=== PATIENT | male | born 1995 | race Caucasian/White ===

== ENCOUNTER 2017-05-28 16:05 | Inpatient (IN) | payer OTHER ==
[~2017-05-28] VITALS: Ht 167.6 cm; Wt 46.8 kg
[2017-05-28] MEDS ORDERED: ONDANSETRON INJ 2 MG/ML 2 ML VIAL IV STA (16:24)
[2017-05-28] MEDS ORDERED: KETOROLAC TROMETHAMINE 30 MG/ML VIAL IV STA (16:24)
[2017-05-28] MEDS ORDERED: SODIUM CHLORIDE 0.9% 1000ML 1,000 ML IV STA ×2 (16:24→16:51)
[2017-05-28 16:41] LABS: BASO % 0.1 %; BASO ABS # 0.03 K/uL (0-0.2); COMPLETE YES; HEMATOCRIT 44.6 % (42-52); IG% 0.4 %; LYMPH % 4.4 %; LYMPH ABS # 0.98 K/uL (1.2-3.4); MEAN CELL VOLUME 94.7 fL (80-100); MEAN CORPUSCULAR HEMOGLOBIN 34.6 pg (25-34); MEAN CORPUSCULAR HGB CONC 36.5 g/dl (32-36); MEAN PLATELET VOLUME 11.5 fL (7.4-10.4); MONO % 5.6 %; NEUT % 89.5 %; PLATELET COUNT 220 K/uL (130-400); RED BLOOD COUNT 4.71 M/uL (4.7-6.1); WHITE BLOOD COUNT 22.11 K/uL (4.8-10.8)
[2017-05-28] MEDS ORDERED: NovoLIN-R INSULIN PER UNIT CHARGE IV STA (16:51)
[2017-05-28] MEDS ORDERED: INSDGIPEN SC (16:56)
[2017-05-28] MEDS ORDERED: NVLGI/PEN SQ (16:56)
[2017-05-28] MEDS ORDERED: ERGO500011 PO (16:56)
[2017-05-28] MEDS ORDERED: EUTHYROX PO (16:56)
[2017-05-28 16:57] LABS: URINE APPEARANCE CLEAR (CLEAR); URINE BILIRUBIN NEG (NEG); URINE COLOR YELLOW; URINE NITRITE NEG (NEG); URINE SPECIFIC GRAVITY 1.039 (1.000-1.030); UROBILINOGEN NEG (NEG)
[2017-05-28 16:57] LABS: BUN/CREATININE RATIO 18.4 (10-20); CALCIUM 9.4 mg/dl (8.5-10.1); CREATININE 1.26 mg/dl (0.60-1.40); POTASSIUM 3.8 mmol/L (3.5-5.1)
[2017-05-28 16:58] LABS: ISTAT CREATININE 0.8 mg/dl; ISTAT HEMOGLOBIN 15.3 g/dl (14.0-18.0); ISTAT IONIZED CALCIUM 1.09 mmol/l
[2017-05-28 17:00] LABS: MANUAL MICROSCOPIC REQUIRED? NO; REVIEW REQ? NO
[2017-05-28] MEDS ORDERED: INSULIN IV INFUSION PROTOCOL STA ×2 (17:01→18:07)
[2017-05-28 17:11] LABS: BETA-HYDROXYBUTYRATE 23.44 mg/dL (0.2-2.81)
[2017-05-28] MEDS ORDERED: MODERATE STRESS LEVEL ONE ×2 (17:15→18:15)
[2017-05-28] MEDS ORDERED: DKA GOAL RANGE 150-250 mg/dl 1 EA ONE ×2 (17:15→18:15)
[2017-05-28] MEDS ORDERED: NovoLIN R BOLUS FROM BAG IV ONE (17:15)
[2017-05-28] MEDS ORDERED: INSULIN REGULAR 250 UNITS in SODIUM CHLORIDE 0.9% 250ML 250 ML IV SCH (17:15)
--- NOTE | 2017-05-28 17:15 | EMERGENCY ROOM VISIT NOTE ---
History Report prepared by Mikal: Bart Recinos Under the Supervision of: Dr. Eliot Rossi M.D. First contact with patient: 16:19 Chief Complaint: VOMITING Stated Complaint: VOMITING SEVERAL TIMES-HAS TYPE 1 DIABETES History of Present Illness The patient is a 21 year old male who presents to the Emergency Room with complaints of persistent vomiting starting this morning around 0600. He states that he woke up this morning feeling dizzy, nauseous, and he vomited. He has been drinking small amounts of water, and he is unable to keep this down. He notes that he has vomited 8 times today. The patient denies abdominal pain or diarrhea. He is a type 1 diabetic, and he takes insulin shots. He reports that his blood sugar was 375 earlier this morning, though it has come down a little bit after insulin. The patient denies smoking marijuana and cigarettes. Source of History: patient Onset: 0600 Position: other (global) Quality: other (vomiting) Timing: other (persistent) Associated Symptoms: No abdominal pain, No diarrhea Note: Associated symptoms: Dizziness. Review of Systems See HPI for pertinent positives & negatives. A total of 10 systems reviewed and were otherwise negative. Past Medical & Surgical Medical Problems: (1) Diabetes type I Social History Smoking Status: Never Smoker Marital Status: single Housing Status: lives with roommate Occupation Status: [employer] student Current/Historical Medications Scheduled Ergocalciferol (Vitamin D 23598 Unit), 1 TAB PO [id number] Insulin Aspart (Novolog Flexpen), SQ TIDM Insulin Glargine (Lantus Solostar), 34 SC QPM [Euthyrox], 50 MCG PO DAILY Allergies Coded Allergies: No Known Allergies (Unverified , 05/28/17) Physical Exam Vital Signs Date Time Temp Pulse Resp B/P (MAP) Pulse Ox O2 Delivery O2 Flow Rate FiO2 05/28/17 16:13 36.8 138 18 115/74 98 Room Air Physical Exam GENERAL: Patient is a healthy-appearing well-nourished male HEAD: Normocephalic atraumatic EYES: Ocular movements intact pupils equal and react to light OROPHARYNX mucous membranes are moist no exudates present no erythema or edema present NECK: Supple no nuchal rigidity CHEST: Good equal expansion LUNGS: Clear and equal to auscultation CARDIAC: Normal S1 and S2 ABDOMEN: Soft nontender no guarding BACK: No CVA tenderness EXTREMITIES: No pain upon palpation normal muscle strength in all groups no clubbing cyanosis or edema NEURO: Patient is following commands and answering questions appropriately. Alert and oriented x3 Cranial Nerves 2-12 grossly intact Medical Decision & Procedures ER Provider Diagnostic Interpretation: Radiology results as stated below per my review and radiologist interpretation: PA CHEST RADIOGRAPH AND UPRIGHT AND SUPINE AP RADIOGRAPHS OF THE ABDOMEN CLINICAL HISTORY: Epigastric pain. COMPARISON STUDY: No previous studies for comparison. FINDINGS: Lung volumes are normal. Lungs are clear. No pneumothorax or pleural effusion is present. Pulmonary vascularity is normal. Cardiomediastinal silhouette is normal. There is no free air. The bowel gas pattern is normal. IMPRESSION: 1. No free air or evidence of bowel obstruction. 2. No acute cardiopulmonary findings. Electronically signed by: Dada Koroma M.D. 05/28/2017 5:13 PM Dictated Date/Time: 05/28/2017 5:12 PM Laboratory Results 05/28/17 16:30 Red Blood Count 4.71, Mean Corpuscular Volume 94.7, Mean Corpuscular Hemoglobin 34.6, Mean Corpuscular Hemoglobin Concent 36.5, Mean Platelet Volume 11.5, Neutrophils (%) (Auto) 89.5, Lymphocytes (%) (Auto) 4.4, Monocytes (%) (Auto) 5.6, Eosinophils (%) (Auto) 0.0, Basophils (%) (Auto) 0.1, Neutrophils # (Auto) 19.77, Lymphocytes # (Auto) 0.98, Monocytes # (Auto) 1.24, Eosinophils # (Auto) 0.00, Basophils # (Auto) 0.03 Test 05/28/17 16:30 05/28/17 16:40 05/28/17 16:44 White Blood Count 22.11 K/uL (4.8-10.8) Red Blood Count 4.71 M/uL (4.7-6.1) Hemoglobin 16.3 g/dL (14.0-18.0) Hematocrit 44.6 % (42-52) Mean Corpuscular Volume 94.7 fL (80-100) Mean Corpuscular Hemoglobin 34.6 pg (25-34) Mean Corpuscular Hemoglobin Concent 36.5 g/dl (32-36) Platelet Count 220 K/uL (130-400) Mean Platelet Volume 11.5 fL (7.4-10.4) Neutrophils (%) (Auto) 89.5 % Lymphocytes (%) (Auto) 4.4 % Monocytes (%) (Auto) 5.6 % Eosinophils (%) (Auto) 0.0 % Basophils (%) (Auto) 0.1 % Neutrophils # (Auto) 19.77 K/uL (1.4-6.5) Lymphocytes # (Auto) 0.98 K/uL (1.2-3.4) Monocytes # (Auto) 1.24 K/uL (0.11-0.59) Eosinophils # (Auto) 0.00 K/uL (0-0.5) Basophils # (Auto) 0.03 K/uL (0-0.2) RDW Standard Deviation 40.7 fL (36.4-46.3) RDW Coefficient of Variation 11.9 % (11.5-14.5) Immature Granulocyte % (Auto) 0.4 % Immature Granulocyte # (Auto) 0.09 K/uL (0.00-0.02) Estimated Average Glucose 157 mg/dl Hemoglobin A1c 7.1 % (4.5-5.6) Total Bilirubin 1.3 mg/dl (0.2-1) Direct Bilirubin 0.3 mg/dl (0-0.2) Aspartate Amino Transf (AST/SGOT) 7 U/L (15-37) Alanine Aminotransferase (ALT/SGPT) 17 U/L (12-78) Alkaline Phosphatase 104 U/L (45-117) Total Protein 8.8 gm/dl (6.4-8.2) Albumin 4.9 gm/dl (3.4-5.0) Lipase 164 U/L (73-393) Beta-Hydroxybutyric Acid 23.44 mg/dL (0.2-2.81) Thyroid Stimulating Hormone (TSH) 0.348 uIu/ml (0.300-4.500) Urine Color YELLOW Urine Appearance CLEAR (CLEAR) Urine pH 5.0 (4.5-7.5) Urine Specific [place] 1.039 (1.000-1.030) Urine Protein NEG (NEG) Urine Glucose (UA) 3+ (NEG) Urine Ketones 3+ (NEG) Urine Occult Blood NEG (NEG) Urine Nitrite NEG (NEG) Urine Bilirubin NEG (NEG) Urine Urobilinogen NEG (NEG) Urine Leukocyte Esterase NEG (NEG) Urine Opiates Screen NEG (NEG) Urine Methadone, Qualitative NEG (NEG) Urine Barbiturates NEG (NEG) Urine Phencyclidine (PCP) Level NEG (NEG) Ur Amphetamine/Methamphetamine NEG (NEG) MDMA (Ecstasy) Screen NEG (NEG) Urine Benzodiazepines Screen NEG (NEG) Urine Cocaine Metabolite NEG (NEG) Urine Marijuana (THC) NEG (NEG) Bedside Hemoglobin 15.3 g/dl (14.0-18.0) Bedside Hematocrit 45 % (42-52) Bedside Sodium 133 mEq/L (135-144) Bedside Potassium 5.9 mEq/L (3.3-5.0) Bedside Chloride 99 mEq/L (101-112) Bedside Total CO2 21 mEq/l (24-31) Bedside Blood Urea Nitrogen 37 mg/dl (7-18) Bedside Creatinine 0.8 mg/dl Bedside Glucose (other) 234 mg/dl (70-99) Bedside Ionized Calcium (Octavio) 1.09 mmol/l Labs reviewed by ED physician. Medications Administered Medications (Trade) Dose Ordered Sig/Veronica Route Start Time Stop Time Status Last Admin Dose Admin Sodium Chloride 1,000 ml @ 999 mls/hr Q1H1M STAT IV 05/28/17 16:24 05/28/17 17:24 DC 05/28/17 16:43 999 MLS/HR Ondansetron HCl (Zofran Inj) 4 mg NOW STAT IV 05/28/17 16:24 05/28/17 16:26 DC 05/28/17 16:43 4 MG Ketorolac Tromethamine (Toradol Inj) 30 mg NOW STAT IV 05/28/17 16:24 05/28/17 16:26 DC 05/28/17 16:43 30 MG Sodium Chloride 1,000 ml @ 999 mls/hr Q1H1M STAT IV 05/28/17 16:51 05/28/17 17:51 DC 05/28/17 17:35 999 MLS/HR Insulin Human Regular (NovoLIN R BOLUS FROM BAG) 1 unit ONE ONCE IV 05/28/17 17:15 05/28/17 17:16 DC 05/28/17 17:15 1 UNIT Insulin Human Regular 250 units/ Sodium Chloride 252.5 ml @ 0 mls/hr Q24H IV 05/28/17 17:15 05/29/17 07:07 DC 05/28/17 17:56 1.2 MLS/HR Potassium Chloride/Dextrose/ Sod Cl 1,000 ml @ 150 mls/hr Q6H40M IV 05/28/17 18:00 05/28/17 18:34 DC 05/28/17 18:14 150 MLS/HR ED Course 1619: Past medical records reviewed. The patient was evaluated in room A4. A complete history and physical examination was performed. 1624: Toradol 30mg IV, Zofran 4mg IV, Sodium Chloride 1000 ml @ 999 mls/hr IV 1651: Sodium Chloride 1000 ml @ 999 mls/hr IV 1701: Insulin IV Infusion Protocol 1715: Insulin Human Regular 1 unit IV 1730: Glucagon 1mg PRN SQ, Dextrose 50% 50ml PRN Syringe, Glucose 4-8 tablets PRN PO, Glucose 40% Gel 15-30 grams PRN PO 1724: I discussed the patient's case with Dr. Lucio, she has agreed to evaluate the patient for further management and care. 1734: I reevaluated the patient and discussed the treatment plan with him. He was agreeable, and he is going to stay for further evaluation. 1900: Insulin Aspart SC Medical Decision Differential diagnosis: Etiologies such as gastroenteritis, food borne illness, infections, appendicitis , diverticulitis, inflammatory bowel disease, obstruction, GI bleed, biliary pathology, as well as others were entertained. This is a 21-year-old male who presents emergency department complaining of intractable nausea and vomiting. In addition the patient is also type I diabetic. He is acutely dehydrated and his bicarbonate is only 18. For this reason IV was established, patient given normal saline bolus 2. He was started on an insulin drip. I did discuss the case with the hospitalist service who agreed to admit the patient. Patient was in agreement with treatment plan. Consults Time Called: 172 Consulting Physician: Dr. Lucio Returned Call: [phone] I discussed the patient's case with Dr. Lucio, she has agreed to evaluate the patient for further management and care. Impression Primary Impression: DKA (diabetic ketoacidoses) Scribe Attestation The scribe's documentation has been prepared under my direction and personally reviewed by me in its entirety. I confirm that the note above accurately reflects all work, treatment, procedures, and medical decision making performed by me. Departure Information Dispostion Being Evaluated By Hospitalist Referrals Bijan Saab PA-C (PCP) Patient Instructions [facility] Problem Qualifiers Primary Impression: DKA (diabetic ketoacidoses) Diabetes mellitus type: type 1 Diabetes mellitus complication detail: without coma Qualified Codes: E10.10 - Type 1 diabetes mellitus with ketoacidosis without coma
[2017-05-28] MEDS ORDERED: GLUCOSE 10 TABS/TUBE PO PRN (17:30)
[2017-05-28] MEDS ORDERED: GLUCAGON FOR INJ 1 MG VIAL SQ PRN (17:30)
[2017-05-28] MEDS ORDERED: GLUCOSE 40% GEL 15 GM TUBE PO PRN (17:30)
[2017-05-28] MEDS ORDERED: DEXTROSE 50% 50 ML SYR IV PRN (17:30)
[2017-05-28 17:31] LABS: BENZODIAZEPINE, URINE NEG (NEG); COCAINE,URINE NEG (NEG); PHENCYCLIDINE, URINE NEG (NEG)
[2017-05-28] MEDS ORDERED: D5NSS + 20MEQ KCL 1,000 ML IV SCH (18:00)
[2017-05-28] MEDS ORDERED: D5W AND 1/2NSS + 20MEQ KCL 1000 ML IV SCH (18:00)
[2017-05-28] MEDS ORDERED: ONDANSETRON INJ 2 MG/ML 2 ML VIAL IV PRN (18:15)
[2017-05-28] MEDS ORDERED: PHARMACY GLYCEMIC MGMT CONSULT PRN (18:15)
[2017-05-28] MEDS ORDERED: ACETAMINOPHEN 325 MG TAB PO PRN (18:15)
[2017-05-28] MEDS ORDERED: MAGNESIUM HYDROXIDE SUSP 30 ML UDC PO PRN (18:15)
[2017-05-28] MEDS ORDERED: PENDING NSS+20mEq KCL IVF SCH (18:15)
--- NOTE | 2017-05-28 18:24 | History and Physical ---
History & Physical Date & Time of Service: May 28, 2017 at 18:11 Chief Complaint: Vomiting Several Times-Has Type 1 Diabetes Primary Care Physician: [facility] History of Present Illness Source: patient 21 y/o M c/o elevated BS. Pt states that he woke up this AM to n/v. He could not take anything PO and would throw up after all attempts including water. He was sweaty and lightheaded. He checked his BS and it was 375, so he took 6 units of insulin. He rechecked 2 hrs later and it was 299, so he took another 6 units. BS went to 264 and he continued to have n/v so he came to the ED. Pt states that he usually takes lantus 34 units HS and TID novolog, 6-15 units depending on how big of a meal he eats. He did this yesterday with the only exception being that he usually takes his lantus around 10p and he didn't take it until around 1a. He ate his usual diet yesterday as well and had no issues with PO yesterday. He is working on [employer] but denies any erratic eating. He does have stress related to this but he doesn't feel it is out of the usual level of stress he has had in the past. Pt follows with endo in [facility]. His last appt was this past summer and his A1c was 7.4. He has an appt to establish care with endocrine in [place] on 07/03/17. Pt denies prior hx of hospitalization for his DM-I. Pt denies fever, SOB, chest pain, abd pain, c/d, LE pain or swelling. He is feeling somewhat improved s/p IVF and insulin in the ED. Pt notes that he has had recent issues with hypoglycemia over the last few months. He has been difficult to arouse by his roommates and takes chocolate or other sugar and improves. When he has checked his BS, it was been <70 during these times. His usual is 90-180. Past Medical/Surgical History DM-I Hypothyroid Vit D deficiency Social History Smoking Status: Never Smoker Alcohol Use: none Drug Use: none Marital Status: single Occupational Status: [employer] student Allergies Coded Allergies: No Known Allergies (Unverified , 05/28/17) Home Medications Scheduled Ergocalciferol (Vitamin D 92859 Unit), 1 TAB PO [id number] Insulin Aspart (Novolog Flexpen), SQ TIDM Insulin Glargine (Lantus Solostar), 34 SC QPM [Euthyrox], 50 MCG PO DAILY Review of Systems Pertinent positives and negatives reviewed in HPI--all others negative Physical Exam Vital Signs Date Time Temp Pulse Resp B/P (MAP) Pulse Ox O2 Delivery O2 Flow Rate FiO2 05/28/17 16:13 36.8 138 18 115/74 98 Room Air General Appearance: no apparent distress, + thin Head: normocephalic, atraumatic Eyes: normal inspection, EOMI, sclerae normal Respiratory/Chest: normal breath sounds, no respiratory distress Cardiovascular: regular rate, rhythm, no edema Abdomen/GI: non tender, soft Extremities/Musculoskelatal: no calf tenderness, no pedal edema Neurologic/Psych: alert, normal mood/affect, oriented x 3 Skin: normal color, warm/dry Diagnostics Laboratory Results Results Past 24 Hours Test 05/28/17 16:30 05/28/17 16:40 05/28/17 16:44 05/28/17 16:51 Range/Units White Blood Count 22.11 4.8-10.8 K/uL Red Blood Count 4.71 4.7-6.1 M/uL Hemoglobin 16.3 14.0-18.0 g/dL Hematocrit 44.6 42-52 % Mean Corpuscular Volume 94.7 80-100 fL Mean Corpuscular Hemoglobin 34.6 25-34 pg Mean Corpuscular Hemoglobin Concent 36.5 32-36 g/dl Platelet Count 220 130-400 K/uL Mean Platelet Volume 11.5 7.4-10.4 fL Neutrophils (%) (Auto) 89.5 % Lymphocytes (%) (Auto) 4.4 % Monocytes (%) (Auto) 5.6 % Eosinophils (%) (Auto) 0.0 % Basophils (%) (Auto) 0.1 % Neutrophils # (Auto) 19.77 1.4-6.5 K/uL Lymphocytes # (Auto) 0.98 1.2-3.4 K/uL Monocytes # (Auto) 1.24 0.11-0.59 K/uL Eosinophils # (Auto) 0.00 0-0.5 K/uL Basophils # (Auto) 0.03 0-0.2 K/uL RDW Standard Deviation 40.7 36.4-46.3 fL RDW Coefficient of Variation 11.9 11.5-14.5 % Immature Granulocyte % (Auto) 0.4 % Immature Granulocyte # (Auto) 0.09 0.00-0.02 K/uL Sodium Level 131 136-145 mmol/L Potassium Level 3.8 3.5-5.1 mmol/L Chloride Level 97 98-107 mmol/L Carbon Dioxide Level 18 21-32 mmol/L Anion Gap 16.0 20.0 16-25 mmol/L Blood Urea Nitrogen 23 7-18 mg/dl Creatinine 1.26 0.60-1.40 mg/dl Est Creatinine Clear Calc Drug Dose 61.9 ml/min Estimated GFR () 94.5 Estimated GFR (Non- 81.6 BUN/Creatinine Ratio 18.4 10-20 Random Glucose 233 70-99 mg/dl Calcium Level 9.4 8.5-10.1 mg/dl Total Bilirubin 1.3 0.2-1 mg/dl Direct Bilirubin 0.3 0-0.2 mg/dl Aspartate Amino Transf (AST/SGOT) 7 15-37 U/L Alanine Aminotransferase (ALT/SGPT) 17 12-78 U/L Alkaline Phosphatase 104 45-117 U/L Total Protein 8.8 6.4-8.2 gm/dl Albumin 4.9 3.4-5.0 gm/dl Lipase 164 73-393 U/L Beta-Hydroxybutyric Acid 23.44 0.2-2.81 mg/dL Urine Color YELLOW Urine Appearance CLEAR CLEAR Urine pH 5.0 4.5-7.5 Urine Specific [place] 1.039 1.000-1.030 Urine Protein NEG NEG Urine Glucose (UA) 3+ NEG Urine Ketones 3+ NEG Urine Occult Blood NEG NEG Urine Nitrite NEG NEG Urine Bilirubin NEG NEG Urine Urobilinogen NEG NEG Urine Leukocyte Esterase NEG NEG Urine Opiates Screen NEG NEG Urine Methadone, Qualitative NEG NEG Urine Barbiturates NEG NEG Urine Phencyclidine (PCP) Level NEG NEG Ur Amphetamine/Methamphetamine NEG NEG MDMA (Ecstasy) Screen NEG NEG Urine Benzodiazepines Screen NEG NEG Urine Cocaine Metabolite NEG NEG Urine Marijuana (THC) NEG NEG Bedside Hemoglobin 15.3 14.0-18.0 g/dl Bedside Hematocrit 45 42-52 % Bedside Sodium 133 135-144 mEq/L Bedside Potassium 5.9 3.3-5.0 mEq/L Bedside Chloride 99 101-112 mEq/L Bedside Total CO2 21 24-31 mEq/l Bedside Blood Urea Nitrogen 37 7-18 mg/dl Bedside Creatinine 0.8 mg/dl Bedside Glucose (other) 234 70-99 mg/dl Bedside Ionized Calcium (Octavio) 1.09 mmol/l Test 05/28/17 17:15 Range/Units Bedside Glucose 197 70-99 mg/dl Diagnostic Radiology CXR/AXR: neg Impression Assessment and Plan 21 y/o M who was admitted on 05/28 with DKA DKA: improving, however with AG of 20 Monitor on insulin and IVF Serial PRP DKA protocol No hx of prior hospitalizations for DM-I A1c pending Leukocytosis: likely stress reaction to DKA CXR neg for PNA UA neg Hypothyroid: TSH pending Pt notes recent hypoglycemia issues Level of Care Telemetry VTE Prophylaxis VTE Risk Assessment Done? Y/N: Yes Risk Level: Low
[2017-05-28] MEDS ORDERED: INSULIN ASPART 100 UNITS/ML 3 ML PEN SC SCH ×3 (19:00→21:00)
[2017-05-28 19:20] LABS: THYROID STIMULATING HORMONE 0.348 uIu/ml (0.300-4.500)
[2017-05-28] MEDS ORDERED: PENDING D5 1/2NS+20mEq KCL IVF SCH (20:00)
[2017-05-28 21:00] LABS: BUN/CREATININE RATIO 21.1 (10-20); CREATININE 0.87 mg/dl (0.60-1.40); MAGNESIUM 1.9 mg/dl (1.8-2.4); PHOSPHORUS 3.2 mg/dl (2.5-4.9)
[2017-05-28 21:04] VITALS: BP 115/67; PULSE 97; TEMP 36.8; O2SAT 100; BMI 17.2
[2017-05-28 21:29] LABS: CALCIUM 7.7 mg/dl (8.5-10.1)
[2017-05-28] MEDS: D5W AND 1/2NSS + 20MEQ KCL 1,000 ML IV SCH (21:37)
[2017-05-28 23:33] VITALS: BP 118/68; PULSE 92; TEMP 36.8; O2SAT 100
[2017-05-29] VITALS (9 sets, daily range): BP systolic 111–120; BP diastolic 67–72; PULSE 73–87; TEMP 36.4–36.9; O2SAT 94–100; Ht 167.6 cm; Wt 46.8 kg
[2017-05-29] LABS: BUN/CREATININE RATIO 17.7 (10-20); CREATININE 0.94 mg/dl (0.60-1.40); MAGNESIUM 1.9 mg/dl (1.8-2.4); PHOSPHORUS 3.6 mg/dl (2.5-4.9); POTASSIUM 4.1 mmol/L (3.5-5.1)
[2017-05-29 04:18] LABS: BLOOD UREA NITROGEN 15 mg/dl (7-18); BUN/CREATININE RATIO 20.2 (10-20); CALCIUM 7.7 mg/dl (8.5-10.1); CARBON DIOXIDE 25 mmol/L (21-32); CHLORIDE 107 mmol/L (98-107); CREATININE 0.72 mg/dl (0.60-1.40); GLUCOSE 190 mg/dl (70-99); POTASSIUM 3.8 mmol/L (3.5-5.1); SODIUM 136 mmol/L (136-145)
[2017-05-29 04:19] LABS: PHOSPHORUS 3.4 mg/dl (2.5-4.9)
[2017-05-29] MEDS ORDERED: INSULIN GLARGINE SOLOSTAR 100 UNITS/ML 3 ML PEN SC STA (05:01)
[2017-05-29] MEDS: D5W AND 1/2NSS + 20MEQ KCL 1,000 ML IV SCH (05:14)
[2017-05-29] MEDS ORDERED: LEVOTHYROXINE 50 MCG TAB PO SCH (06:00)
[2017-05-29 07:20] LABS: ESTIMATED AVERAGE GLUCOSE 157 mg/dl; HA1C FLAG Normal (Normal)
[2017-05-29] MEDS: INSULIN ASPART 100 UNITS/ML 3 ML PEN SC SCH ×3 (07:53→16:49)
[2017-05-29 08:39] LABS: BUN/CREATININE RATIO 13.6 (10-20); CALCIUM 8.3 mg/dl (8.5-10.1); CREATININE 0.82 mg/dl (0.60-1.40); MAGNESIUM 2.1 mg/dl (1.8-2.4); POTASSIUM 3.8 mmol/L (3.5-5.1)
[2017-05-29 08:42] LABS: PHOSPHORUS 2.8 mg/dl (2.5-4.9)
--- NOTE | 2017-05-29 13:00 | Pharmacy Progress Note ---
Glycemic Control Intl Consult Date of Service May 29, 2017. Scope Glycemic Pharmacist consulted by Dr Lucio on 05/28/17 for glycemic control and to write orders per [facility] inpatient glycemic control protocol Objective Weight (Kilograms): 46.800 Accuchecks BSG (last 24hrs): Test 05/28/17 16:30 05/28/17 17:15 05/28/17 18:34 05/28/17 20:08 Random Glucose 233 mg/dl (70-99) Bedside Glucose 197 mg/dl (70-99) 159 mg/dl (70-99) 191 mg/dl (70-99) Test 05/28/17 20:20 05/28/17 21:07 05/28/17 22:20 05/28/17 23:36 Random Glucose 178 mg/dl (70-99) 227 mg/dl (70-99) Bedside Glucose 167 mg/dl (70-99) 158 mg/dl (70-99) Test 05/29/17 00:13 05/29/17 01:05 05/29/17 01:59 05/29/17 03:03 Bedside Glucose 254 mg/dl (70-99) 244 mg/dl (70-99) 197 mg/dl (70-99) 214 mg/dl (70-99) Test 05/29/17 03:54 05/29/17 04:00 05/29/17 05:01 05/29/17 06:00 Random Glucose 190 mg/dl (70-99) Bedside Glucose 178 mg/dl (70-99) 149 mg/dl (70-99) 137 mg/dl (70-99) Test 05/29/17 07:01 05/29/17 08:06 Bedside Glucose 130 mg/dl (70-99) Laboratory Data (last 24hrs) Test 05/28/17 16:30 05/28/17 16:44 05/28/17 20:20 05/28/17 23:36 Anion Gap 16.0 mmol/L 20.0 mmol/L 7.0 mmol/L 7.0 mmol/L BUN/Creatinine Ratio 18.4 21.1 17.7 Blood Urea Nitrogen 23 mg/dl 18 mg/dl 17 mg/dl Creatinine 1.26 mg/dl 0.87 mg/dl 0.94 mg/dl Hemoglobin A1c 7.1 % Potassium Level 3.8 mmol/L 4.0 mmol/L 4.1 mmol/L Sodium Level 131 mmol/L 136 mmol/L 136 mmol/L White Blood Count 22.11 K/uL Red Blood Count 4.71 M/uL Hemoglobin 16.3 g/dL Hematocrit 44.6 % Mean Corpuscular Volume 94.7 fL Mean Corpuscular Hemoglobin 34.6 pg Mean Corpuscular Hemoglobin Concent 36.5 g/dl Platelet Count 220 K/uL Mean Platelet Volume 11.5 fL Neutrophils (%) (Auto) 89.5 % Lymphocytes (%) (Auto) 4.4 % Monocytes (%) (Auto) 5.6 % Eosinophils (%) (Auto) 0.0 % Basophils (%) (Auto) 0.1 % Neutrophils # (Auto) 19.77 K/uL Lymphocytes # (Auto) 0.98 K/uL Monocytes # (Auto) 1.24 K/uL Eosinophils # (Auto) 0.00 K/uL Basophils # (Auto) 0.03 K/uL Test 05/29/17 03:54 05/29/17 08:06 Anion Gap 4.0 mmol/L BUN/Creatinine Ratio 20.2 Blood Urea Nitrogen 15 mg/dl Creatinine 0.72 mg/dl Potassium Level 3.8 mmol/L Sodium Level 136 mmol/L HbA1c Test 05/28/17 16:30 Hemoglobin A1c 7.1 % (4.5-5.6) H Recent Pertinent Medications Outpatient Anti-diabetic Regimen: * Lantus 34 units HS plus Novolog 6-15 units TIDM The patient is currently receiving: * Basal insulin: Lantus 30 units every 24 hours x 1 dose * Correctional Insulin: Novolog Correction per scale ACHS Goal Range: Low 150 mg/dL - High 250 mg/dL Correction Factor: -- mg/dL/unit * Prandial insulin: Per carb ratio of 1 unit per -- grams CHO consumed * Oral Agents: Risk Factors for Insulin Resistance: * IVF: D51/2NS + 20 KCL @ 150 cc/hr * Diet: type 1 diet Assessment & Plan ASSESSMENT: * Mr Temple is a 21 y/o M admitted with DKA - he has a PMH of type 1 diabetes. He [place] endocrinology [place] this [place]. Overnight, the patient's insulin infusion ran from 0.7 units-1.0 units/hr. His anion gap closed and bicarbonate was normal relatively quickly; his blood sugars remained stable. Overnight pharmacist gave patient 30 units of Lantus this morning. Since the dose was higher than what the infusion suggested, only two hours of overlap was done. * Weight-based stress of 3 Novolog was utilized for breakfast secondary to patient's insulin resistance then this will be loosened for subsequent meals. For further Lantus dosing, will evaluate patient's response to 30 units of Lantus and most likely utilize scale tomorrow morning. PLAN FOR INPATIENT GLYCEMIC CONTROL: * Basal insulin with LANTUS 30 units SQ x 1 then 24 units SQ daily * Correctional Insulin with NOVOLOG / REGULAR per scale ACHS or Q6hrs while NPO * Goal Range: Low 110 mg/dL - High 140 mg/dL * Correction Factor: 35 mg/dL/unit for breakfast then 45 for all other meals * Nutritional / Prandial insulin per carb ratio of 1 unit per 12 grams CHO consumed for breakfast then 15 for all other meals RECOMMENDATIONS FOR DISCHARGE * Patient appears reasonably well-controlled (reports A1C of 7.2%) - recommend establishment with endocrinology in [place]. Thank you.
--- NOTE | 2017-05-29 14:19 | Medical Student: [facility] ---
Med Student Progress Note Date of Service May 29, 2017. Subjective Pt evaluation today including: conversation w/ patient, physical exam, chart review, lab review, review of studies Voiding: no voiding problems Freedom is a 21-year-old male with a history of type 1 diabetes who presented to the ER on 05/28 at around 4pm for persistent nausea and recurrent episodes of vomiting. He was diagnosed with type 1 diabetes at the age of 3 and has managed his diabetes with insulin injections and blood sugar checks that occur typically 2-3 times a day. Freedom was in his usual state of health and was studying for [employer] when he woke up on 05/28 at 4am with nausea and had an episode of emesis. He attempted to drink water, but that also triggered vomiting. His blood sugar measured at 375 and he gave himself 6 units of insulin. Two hours later, his blood glucose measured at 299 and he gave himself 6 more units of insulin. He felt dehydrated and attempted to drink small amounts of water, but it continued to trigger vomiting. An hour later he measured his blood glucose again and it was 264. He could not get back to sleep and rested. Freedom felt weak and was unable to support himself. Freedom follows with an brim pouncing machine operator at home in [facility] every three months and says his A1cs typically run between 7.0-7.5. He is scheduled to see an brim pouncing machine operator in the this June. His A1c on admission was 7.1 I saw Freedom briefly in the morning and then for a longer duration in the afternoon. He was alert and says he felt back to his baseline. He has had no problems eating or drinking and has not had any more nausea/vomiting. Review of Systems Constitutional: No fever, No chills Abdomen: No pain, No nausea, No vomiting, No diarrhea Male : No dysuria, No urinary frequency Endo: + fatigue Objective Vital Signs Date Time Temp Pulse Resp B/P (MAP) Pulse Ox O2 Delivery O2 Flow Rate FiO2 05/29/17 12:00 100 Room Air 05/29/17 12:00 83 05/29/17 10:31 36.9 73 16 111/67 (82) 100 Room Air 05/29/17 08:00 100 Room Air 05/29/17 07:42 36.4 87 16 120/72 (88) 100 Room Air 05/29/17 04:00 94 Room Air 05/29/17 03:30 36.7 77 18 114/69 (84) 99 Room Air 05/29/17 00:01 94 Room Air 05/28/17 23:33 36.8 92 18 118/68 (85) 100 Room Air 05/28/17 21:04 36.8 97 16 115/67 100 Room Air 05/28/17 18:14 111 16 114/56 100 Room Air 05/28/17 16:13 36.8 138 18 115/74 98 Room Air Physical Exam General Appearance: WD/WN, no apparent distress Eyes: bilateral eyes normal inspection Neck: supple, no adenopathy Respiratory/Chest: chest non-tender, lungs clear, normal breath sounds, no respiratory distress, no accessory muscle use Cardiovascular: regular rate, rhythm, no edema, no gallop, no JVD Abdomen: normal bowel sounds, non tender, soft Neurologic/Psychiatric: alert, normal mood/affect, oriented x 3 Skin: normal color, warm/dry Laboratory Results Last 24 Hours Test 05/28/17 16:30 05/28/17 16:40 05/28/17 16:44 05/28/17 17:15 White Blood Count 22.11 K/uL Red Blood Count 4.71 M/uL Hemoglobin 16.3 g/dL Hematocrit 44.6 % Mean Corpuscular Volume 94.7 fL Mean Corpuscular Hemoglobin 34.6 pg Mean Corpuscular Hemoglobin Concent 36.5 g/dl Platelet Count 220 K/uL Mean Platelet Volume 11.5 fL Neutrophils (%) (Auto) 89.5 % Lymphocytes (%) (Auto) 4.4 % Monocytes (%) (Auto) 5.6 % Eosinophils (%) (Auto) 0.0 % Basophils (%) (Auto) 0.1 % Neutrophils # (Auto) 19.77 K/uL Lymphocytes # (Auto) 0.98 K/uL Monocytes # (Auto) 1.24 K/uL Eosinophils # (Auto) 0.00 K/uL Basophils # (Auto) 0.03 K/uL RDW Standard Deviation 40.7 fL RDW Coefficient of Variation 11.9 % Immature Granulocyte % (Auto) 0.4 % Immature Granulocyte # (Auto) 0.09 K/uL Sodium Level 131 mmol/L Potassium Level 3.8 mmol/L Chloride Level 97 mmol/L Carbon Dioxide Level 18 mmol/L Anion Gap 16.0 mmol/L 20.0 mmol/L Blood Urea Nitrogen 23 mg/dl Creatinine 1.26 mg/dl Est Creatinine Clear Calc Drug Dose 61.9 ml/min Estimated GFR () 94.5 Estimated GFR (Non- 81.6 BUN/Creatinine Ratio 18.4 Random Glucose 233 mg/dl Estimated Average Glucose 157 mg/dl Hemoglobin A1c 7.1 % Calcium Level 9.4 mg/dl Total Bilirubin 1.3 mg/dl Direct Bilirubin 0.3 mg/dl Aspartate Amino Transf (AST/SGOT) 7 U/L Alanine Aminotransferase (ALT/SGPT) 17 U/L Alkaline Phosphatase 104 U/L Total Protein 8.8 gm/dl Albumin 4.9 gm/dl Lipase 164 U/L Beta-Hydroxybutyric Acid 23.44 mg/dL Thyroid Stimulating Hormone (TSH) 0.348 uIu/ml Urine Color YELLOW Urine Appearance CLEAR Urine pH 5.0 Urine Specific [place] 1.039 Urine Protein NEG Urine Glucose (UA) 3+ Urine Ketones 3+ Urine Occult Blood NEG Urine Nitrite NEG Urine Bilirubin NEG Urine Urobilinogen NEG Urine Leukocyte Esterase NEG Urine Opiates Screen NEG Urine Methadone, Qualitative NEG Urine Barbiturates NEG Urine Phencyclidine (PCP) Level NEG Ur Amphetamine/Methamphetamine NEG MDMA (Ecstasy) Screen NEG Urine Benzodiazepines Screen NEG Urine Cocaine Metabolite NEG Urine Marijuana (THC) NEG Bedside Hemoglobin 15.3 g/dl Bedside Hematocrit 45 % Bedside Sodium 133 mEq/L Bedside Potassium 5.9 mEq/L Bedside Chloride 99 mEq/L Bedside Total CO2 21 mEq/l Bedside Blood Urea Nitrogen 37 mg/dl Bedside Creatinine 0.8 mg/dl Bedside Glucose (other) 234 mg/dl Bedside Ionized Calcium (Octavio) 1.09 mmol/l Bedside Glucose 197 mg/dl Test 05/28/17 18:34 05/28/17 20:08 05/28/17 20:20 05/28/17 21:07 Bedside Glucose 159 mg/dl 191 mg/dl 167 mg/dl Venous Blood pH 7.36 Sodium Level 136 mmol/L Potassium Level 4.0 mmol/L Chloride Level 106 mmol/L Carbon Dioxide Level 23 mmol/L Anion Gap 7.0 mmol/L Blood Urea Nitrogen 18 mg/dl Creatinine 0.87 mg/dl Est Creatinine Clear Calc Drug Dose 89.7 ml/min Estimated GFR () 144.0 Estimated GFR (Non- 124.2 BUN/Creatinine Ratio 21.1 Random Glucose 178 mg/dl Calcium Level 7.7 mg/dl Phosphorus Level 3.2 mg/dl Magnesium Level 1.9 mg/dl Test 05/28/17 22:20 05/28/17 23:09 05/28/17 23:36 05/29/17 00:13 Bedside Glucose 158 mg/dl 197 mg/dl 254 mg/dl Venous Blood pH 7.36 Sodium Level 136 mmol/L Potassium Level 4.1 mmol/L Chloride Level 106 mmol/L Carbon Dioxide Level 23 mmol/L Anion Gap 7.0 mmol/L Blood Urea Nitrogen 17 mg/dl Creatinine 0.94 mg/dl Est Creatinine Clear Calc Drug Dose 83.0 ml/min Estimated GFR () 134.7 Estimated GFR (Non- 116.2 BUN/Creatinine Ratio 17.7 Random Glucose 227 mg/dl Calcium Level 8.0 mg/dl Phosphorus Level 3.6 mg/dl Magnesium Level 1.9 mg/dl Test 05/29/17 01:05 05/29/17 01:59 05/29/17 03:03 05/29/17 03:54 Bedside Glucose 244 mg/dl 197 mg/dl 214 mg/dl Venous Blood pH 7.34 Sodium Level 136 mmol/L Potassium Level 3.8 mmol/L Chloride Level 107 mmol/L Carbon Dioxide Level 25 mmol/L Anion Gap 4.0 mmol/L Blood Urea Nitrogen 15 mg/dl Creatinine 0.72 mg/dl Est Creatinine Clear Calc Drug Dose 108.3 ml/min Estimated GFR () > 150.0 Estimated GFR (Non- 134.3 BUN/Creatinine Ratio 20.2 Random Glucose 190 mg/dl Calcium Level 7.7 mg/dl Phosphorus Level 3.4 mg/dl Magnesium Level 2.0 mg/dl Test 05/29/17 04:00 05/29/17 05:01 05/29/17 06:00 05/29/17 07:01 Bedside Glucose 178 mg/dl 149 mg/dl 137 mg/dl 130 mg/dl Test 05/29/17 08:06 05/29/17 10:30 Venous Blood pH 7.37 Sodium Level 139 mmol/L Potassium Level 3.8 mmol/L Chloride Level 107 mmol/L Carbon Dioxide Level 25 mmol/L Anion Gap 7.0 mmol/L Blood Urea Nitrogen 11 mg/dl Creatinine 0.82 mg/dl Est Creatinine Clear Calc Drug Dose 95.1 ml/min Estimated GFR () 147.5 Estimated GFR (Non- 127.3 BUN/Creatinine Ratio 13.6 Random Glucose 109 mg/dl Calcium Level 8.3 mg/dl Phosphorus Level 2.8 mg/dl Magnesium Level 2.1 mg/dl Bedside Glucose 70 mg/dl Assessment and Plan Assessment and Plan: Freedom is a 21-year-old male with a history of type 1 diabetes who presented to the ED yesterday afternoon with episodes of recurrent vomiting, nausea, and hyperglycemia. Diabetic ketoacidosis -with 3+ ketones in the UA, serum beta-hydroxybutyric acid of 22.44, anion gap of 16, serum blood glucose level of 233, and 3+ glucose in the urine, it appears that Freedom had an episode of DKA -Freedom reports having been compliant with his typical insulin regimens -initial management involved giving subcutaneous insulin with potassium and IV fluids to ensure rehydration, checking CMP -blood glucose checks q1h showed levels returning to the 100s-130s, continue with subcutaneous insulin as scheduled -continue IV fluids Type 1 diabetes -educate on DKA signs/symptoms (polydipsia, polyuria, elevated blood glucose levels) -arrange for follow-up with brim pouncing machine operator for discussion on pump & continuous glucose monitor, as Freedom has expressed a desire to obtain both. Discharge planning: home
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
--- NOTE | 2017-05-29 17:05 | Discharge Summary ---
Discharge Summary Date of Service May 29, 2017. Discharge Summary Admission Date: May 28, 2017 at 18:10 Discharge Date: May 29, 2017 Discharge Disposition: Home Principal Diagnosis: DKA Procedures: IV fluids Results Past 24 Hours Test 05/28/17 17:15 05/28/17 18:34 05/28/17 20:08 05/28/17 20:20 Range/Units Bedside Glucose 197 159 191 70-99 mg/dl Venous Blood pH 7.36 7.36-7.41 Sodium Level 136 136-145 mmol/L Potassium Level 4.0 3.5-5.1 mmol/L Chloride Level 106 98-107 mmol/L Carbon Dioxide Level 23 21-32 mmol/L Anion Gap 7.0 3-11 mmol/L Blood Urea Nitrogen 18 7-18 mg/dl Creatinine 0.87 0.60-1.40 mg/dl Est Creatinine Clear Calc Drug Dose 89.7 ml/min Estimated GFR () 144.0 Estimated GFR (Non- 124.2 BUN/Creatinine Ratio 21.1 10-20 Random Glucose 178 70-99 mg/dl Calcium Level 7.7 8.5-10.1 mg/dl Phosphorus Level 3.2 2.5-4.9 mg/dl Magnesium Level 1.9 1.8-2.4 mg/dl Test 05/28/17 21:07 05/28/17 22:20 05/28/17 23:09 05/28/17 23:36 Range/Units Bedside Glucose 167 158 197 70-99 mg/dl Venous Blood pH 7.36 7.36-7.41 Sodium Level 136 136-145 mmol/L Potassium Level 4.1 3.5-5.1 mmol/L Chloride Level 106 98-107 mmol/L Carbon Dioxide Level 23 21-32 mmol/L Anion Gap 7.0 3-11 mmol/L Blood Urea Nitrogen 17 7-18 mg/dl Creatinine 0.94 0.60-1.40 mg/dl Est Creatinine Clear Calc Drug Dose 83.0 ml/min Estimated GFR () 134.7 Estimated GFR (Non- 116.2 BUN/Creatinine Ratio 17.7 10-20 Random Glucose 227 70-99 mg/dl Calcium Level 8.0 8.5-10.1 mg/dl Phosphorus Level 3.6 2.5-4.9 mg/dl Magnesium Level 1.9 1.8-2.4 mg/dl Test 05/29/17 00:13 05/29/17 01:05 05/29/17 01:59 05/29/17 03:03 Range/Units Bedside Glucose 254 244 197 214 70-99 mg/dl Test 05/29/17 03:54 05/29/17 04:00 05/29/17 05:01 05/29/17 06:00 Range/Units Venous Blood pH 7.34 7.36-7.41 Sodium Level 136 136-145 mmol/L Potassium Level 3.8 3.5-5.1 mmol/L Chloride Level 107 98-107 mmol/L Carbon Dioxide Level 25 21-32 mmol/L Anion Gap 4.0 3-11 mmol/L Blood Urea Nitrogen 15 7-18 mg/dl Creatinine 0.72 0.60-1.40 mg/dl Est Creatinine Clear Calc Drug Dose 108.3 ml/min Estimated GFR () > 150.0 Estimated GFR (Non- 134.3 BUN/Creatinine Ratio 20.2 10-20 Random Glucose 190 70-99 mg/dl Calcium Level 7.7 8.5-10.1 mg/dl Phosphorus Level 3.4 2.5-4.9 mg/dl Magnesium Level 2.0 1.8-2.4 mg/dl Bedside Glucose 178 149 137 70-99 mg/dl Test 05/29/17 07:01 05/29/17 08:06 05/29/17 10:30 05/29/17 16:35 Range/Units Bedside Glucose 130 70 72 70-99 mg/dl Venous Blood pH 7.37 7.36-7.41 Sodium Level 139 136-145 mmol/L Potassium Level 3.8 3.5-5.1 mmol/L Chloride Level 107 98-107 mmol/L Carbon Dioxide Level 25 21-32 mmol/L Anion Gap 7.0 3-11 mmol/L Blood Urea Nitrogen 11 7-18 mg/dl Creatinine 0.82 0.60-1.40 mg/dl Est Creatinine Clear Calc Drug Dose 95.1 ml/min Estimated GFR () 147.5 Estimated GFR (Non- 127.3 BUN/Creatinine Ratio 13.6 10-20 Random Glucose 109 70-99 mg/dl Calcium Level 8.3 8.5-10.1 mg/dl Phosphorus Level 2.8 2.5-4.9 mg/dl Magnesium Level 2.1 1.8-2.4 mg/dl Medication Reconciliation Continued Medications: Ergocalciferol (Vitamin D 06914 Unit) 50,000 Unit Cap 1 TAB PO [id number], CAP Insulin Aspart (Novolog Flexpen) 100 Units/Ml Inj SQ TIDM PER CARB COUNT Insulin Glargine (Lantus Solostar) 100 Unit/Ml Inj 34 SC QPM, PEN [Euthyrox] () 50 MCG PO DAILY Discharge Exam Physical Exam: General Appearance: no apparent distress Eyes: EOMI ENT: hearing grossly normal Neck: trachea midline Respiratory/Chest: no respiratory distress, no accessory muscle use Extremities: + pertinent finding (R great toe medial portion of nail slightly ingrown, no erythema no fluctuance minimally tender - placed "traction band aid" and taught pt how to do so) Neurologic/Psychiatric: crystal slicer II-XII nml as tested, alert, normal mood/affect Skin: normal color Hospital Course DKA -likely viral gastroenteritis as inciting factor -responded nicely to vigorous fluids and IV insulin -electrolytes improved, eating well, feeling normal again -safe/stable for home DM1 -generally good control as reflected by above A1c and long track record of similar control -DKA did not appear to be due to compliance issues -set to establish w endocrine locally in about a month vitamin D deficiency -right now would likely have been poor time to check due to DKA/etc --> but did recommend levels in near future give D deficiency despite living in [place] and now living in [facility]. anticipate a need for more aggressive replacement. continue home dosing for now hypothyroid -TSH ok continue home dosing mildly ingrown toenail -placed "traction band aid" to open up skin area, taught pt to do so as well. no s/s infection. no neuropathy or PVD - low risk. self-management as above, then [facility] or [facility] if worsens/fails to improve stable for home Total Time Spent: Greater than 30 minutes This includes examination of the patient, discharge planning, medication reconciliation, and communication with other providers. Discharge Instructions Please refer to the electronic Patient Visit Report (Discharge Instructions) for additional information.
[2017-05-30] MEDS ORDERED: LEVOTHYROXINE 50 MCG TAB PO SCH (06:00)
[2017-05-30] MEDS ORDERED: INSULIN GLARGINE SOLOSTAR 100 UNITS/ML 3 ML PEN SC SCH (09:00)
== END 2017-05-29 18:33 | disposition home or self-care (01) | DRG 639 ==
LOC: C.EDB 16:07 → C.2T 18:10 → ENRESERV 18:45
PROVIDERS: ADMIT Family Medicine; ATTEND Family Medicine
DX: E10.10 Type 1 diabetes mellitus with ketoacidosis without coma (principal); A08.4 Viral intestinal infection, unspecified; L60.0 Ingrowing nail; E03.9 Hypothyroidism, unspecified; E55.9 Vitamin D deficiency, unspecified; Z79.899 Other long term (current) drug therapy

== ENCOUNTER → 2017-06-26 | Outpatient (CLI) | payer OTHER ==
[~2017-06-26] MED LIST: ERGO500011 PO; EUTHYROX PO; INSDGIPEN SC; NVLGI/PEN SQ
[2017-06-26 13:48] LABS: ALBUMIN 4.2 gm/dl (3.4-5.0); ALT/SGPT 22 U/L (12-78); BLOOD UREA NITROGEN 12 mg/dl (7-18); CALCIUM 8.4 mg/dl (8.5-10.1); CARBON DIOXIDE 29 mmol/L (21-32); CHOLESTEROL 129 mg/dl (0-200); CREATININE 0.75 mg/dl (0.60-1.40); GLUCOSE 194 mg/dl (70-99); SODIUM 136 mmol/L (136-145)
[2017-06-26 13:57] LABS: ALKALINE PHOSPHATASE 84 U/L (45-117); AST/SGOT 9 U/L (15-37); LDL CHOLESTEROL CALCULATED 48 mg/dl; TOTAL PROTEIN 7.8 gm/dl (6.4-8.2)
== END | disposition home or self-care (01) ==
LOC: C.LAB1850 11:51
PROVIDERS: ATTEND Physician Assistant
DX: E10.9 Type 1 diabetes mellitus without complications (principal)

== ENCOUNTER 2020-06-23 06:12 | Inpatient (IN) ==
--- NOTE | 2020-06-16 14:13 | Anesthesiology Consultation ---
Date of Service June 16, 2020 Assessment & Plan (1) Encounter for pre-operative examination: The procedure is medically necessary per Dr. Carroll. The procedure is acceptable for the Main OR. Chart Review Chart Review: Acceptable Risk for Surgery and Patient NOT seen in Pre Admission Testing Consults Requested none History Surgery Operation Date: 06/22/20 16:10 Proposed Procedures p Right Shoulder Arthroscopy, Open Latarjet Coracoid Transfer, Possible Remplissage - Eliot Carroll MD Allergies Allergy/AdvReac Type Severity Reaction Status Date / Time No Known Allergies Allergy Verified 06/14/20 13:48 Medications Home Medications Medication Instructions Recorded Confirmed Last Taken insulin aspart U-100 [Novolog See Rx Instructions .ROUTE .COMPLEX 08/03/18 06/15/20 06/13/20 PenFill U-100 Insulin] insulin glargine [Lantus Solostar 33 unit SUBCUT HS 08/03/18 06/15/20 06/12/20 20:00 U-100 Insulin] levothyroxine [Euthyrox] 50 mcg PO QAM 08/03/18 06/15/20 06/13/20 oxycodone 5 mg capsule 5 mg PO Q6H PRN 06/14/20 06/15/20 Unknown acetaminophen [Tylenol] 650 mg PO QID PRN 06/15/20 06/15/20 Unknown ibuprofen [Advil] 600 mg PO Q6H PRN 06/15/20 06/15/20 Unknown Past Medical History Medical History Diabetes type I Hypothyroidism Past Family History Family History Other Diabetes Past Surgical History Surgical History No pertinent past surgical history Social History Smoking Status: Never smoker Hx Substance Use: No substance use type: does not use Testing Laboratory Results Laboratory Tests 06/15/20 06/15/20 19:00 19:00 WBC 7.25 Hgb 14.8 Plt Count 198 Sodium 140 Potassium 3.6 Chloride 106 Carbon Dioxide 29 BUN 7 Creatinine 0.69 Glucose 47 L* Electrocardiogram Date: 06/15/20 Findings: + NSR @ (69 bpm)
[~2020-06-23 06:12] MED LIST changes: -ERGO500011 PO; -EUTHYROX PO; -INSDGIPEN SC; +LR 15ML/HR IV SCH; +LR 60ML/HR IV SCH; -NVLGI/PEN SQ; +ceFAZolin 2000MG 2,000 MG/15 ML SYR IV SCH
[2020-06-23] MEDS ORDERED: BUPIVACAINE 0.5 % 5 MG/1 ML PF 10ML VIAL ONE (06:30)
[2020-06-23] MEDS ORDERED: DEXAMETHASONE SOD INJ 4 MG/ML VIAL ONE (06:34)
[2020-06-23] MEDS ORDERED: PROPOFOL IV EMULSION 10 MG/ML 20 ML VIAL IV ONE ×2 (06:34→10:33)
[2020-06-23] MEDS ORDERED: KETOROLAC 30 MG/ML VIAL ONE (06:34)
[2020-06-23] MEDS ORDERED: LIDOCAINE 2% 2 ML VIAL/AMP(20MG/ML) INFIL ONE (06:34)
[2020-06-23] MEDS ORDERED: ONDANSETRON INJ 2 MG/ML 2 ML VIAL ONE ×2 (06:34→12:48)
[2020-06-23] MEDS ORDERED: ROCURONIUM BROMIDE 10 MG/ML 5 ML VIAL IV ONE (06:34)
[2020-06-23] MEDS ORDERED: MIDAZOLAM HCL 1 MG/ML 2ML VIAL ONE (06:34)
[2020-06-23] MEDS ORDERED: GLYCOPYRROLATE 0.2 MG/ML VIAL ONE (06:35)
[2020-06-23] MEDS ORDERED: KETAMINE 50 MG/5 ML SYRINGE ONE (06:35)
--- NOTE | 2020-06-23 06:56 | History & Physical Bridge Note ---
Date of Service June 23, 2020 History & Physical Bridge Note I have examined the patient, reviewed the History & Physical and in the interval since the performance of the History & Physical I have noted the following changes of clinical significance: no changes noted. Patient is aware of COVID-19 risks. Patient is asymptomatic for COVID-19. Patient has been tested for COVID-19 - [NEGATIVE].
[2020-06-23] MEDS ORDERED: BUPIVACAINE/EPINEPHRINE 0.5% MPF 1:200,000 30 ML VIAL ONE (07:04)
[2020-06-23] MEDS ORDERED: ROPIVACAINE 0.5% 5 MG/ML 30 ML VIAL ONE (07:04)
[2020-06-23] MEDS ORDERED: INSULIN ASPART PER UNIT SC STA (07:05)
[2020-06-23] MEDS ORDERED: ePHEDrine sulfate 50 MG/ML AMP IV PRN (07:08)
[2020-06-23] MEDS ORDERED: ONDANSETRON INJ 2 MG/ML 2 ML VIAL IV PRN (07:08)
[2020-06-23] MEDS ORDERED: ATROPINE SULFATE 0.1 MG/ML 10ML SYR IV PRN (07:08)
[2020-06-23] MEDS ORDERED: fentaNYL citrate 100 MCG/2 ML VIAL IV PRN (07:08)
[2020-06-23] MEDS ORDERED: INSULIN ASPART PER UNIT ONE (07:11)
[2020-06-23] MEDS ORDERED: EpINEphrine HCL INJ 1 MG/ML 1ML SYRINGE ONE (07:13)
[2020-06-23] MEDS ORDERED: SUCCINYLCHOLINE 100MG/5ML SYR IV ONE (08:23)
[2020-06-23] MEDS ORDERED: fentaNYL citrate 100 MCG/2 ML VIAL ONE (09:24)
[2020-06-23] MEDS ORDERED: PHENYLEPHRINE 100MCG/ML 5ML SYR ONE (10:07)
--- NOTE | 2020-06-23 11:50 | Post Operative Brief Note ---
PG Immediate Post Op with CF Date of Surgery June 23, 2020 Pre & Post Diagnosis Operation Date: 06/23/20 07:15 Pre-Op Diagnosis: Anterior Shoulder Dislocation Severe shoulder instability, large engaging Hill-Sachs lesion, Bankart lesion Post-Op Diagnosis: Anterior Shoulder Dislocation. Severe shoulder instability, large engaging Hill-Sachs lesion, Bankart lesion I identified the patient and participated in the time-out.: Yes Procedure Operation Date: 06/23/20 07:15 Actual Procedures p Right Shoulder Arthroscopy, Remplissage, Open Latarjet Coracoid Transfer(Right) - Eliot Carroll MD Surgeon Eliot Carroll MD Database Manager Luis Leger PA-C Estimated Blood Loss 30 Findings Consistent with Post-Op Diagnosis Specimens Specimen Description: No Specimen
--- NOTE | 2020-06-23 11:55 | History & Physical Report ---
Date of Service June 23, 2020 Assessment & Plan (1) Anterior shoulder dislocation: (2) Shoulder joint instability: Admit after right shoulder arthroscopic possible Remplissage and open Latarjet coracoid transfer surgery. The admission is medically necessary despite COVID-19 restrictions because of expected pain, expected difficult glycemic control, and no friend/family or contacts to assist him after surgery. He will remain an inpatient so independent with activities of daily living which should be in 1-2 postoperative days. Admission and Anticipated Discharge Date Anticipated date of discharge: 06/24/20 History of Present Illness Chief Complaint: Right shoulder instability Primary Care Provider: [facility] 24-year-old male has had several dislocations requiring conscious sedation ER in the past month. Shoulder instability began with a fall out of bed, which re quires conscious sedation for initial reduction. 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 He denies any numbness or tingling or neurologic symptoms with regard to his dislocations. Allergies Allergy/AdvReac Type Severity Reaction Status Date / Time No Known Allergies Allergy Verified 06/20/20 13:11 Home Medications Medication Instructions Recorded Confirmed Type insulin aspart U-100 [Novolog See Rx Instructions .ROUTE .COMPLEX 08/03/18 06/23/20 History PenFill U-100 Insulin] insulin glargine [Lantus Solostar 33 unit SUBCUT HS 08/03/18 06/23/20 History U-100 Insulin] levothyroxine [Euthyrox] 50 mcg PO QAM 08/03/18 06/23/20 History acetaminophen [Tylenol] 650 mg PO QID PRN 06/15/20 06/23/20 History ibuprofen [Advil] 600 mg PO Q6H PRN 06/15/20 06/23/20 History Past Med/Surg History Medical History Diabetes type I Hypothyroidism Surgical History Hx of shoulder surgery shoulder manipulation under anesthesia 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 Engineer Required: No Beliefs That Will Affect Care: None marital status: Single Current Living Situation: Alone current occupational status: student Other Information That Helps Us Care for You: No Feels Safe at Home: Yes Safety Concerns: Feels Safe At This Time Assistive Devices: Glasses Review of Systems Constitutional: no fever, no chills and no problem reported Eyes: as per Subjective / HPI; no problem reported Ear, Nose, Mouth, Throat: as per Subjective / HPI; no problem reported Respiratory: as per Subjective / HPI; no problem reported Cardiovascular: no edema and no problem reported Gastrointestinal: no nausea, no vomiting and no problem reported Genitourinary: no problem reported Musculoskeletal: as per Subjective / HPI Integumentary: as per Subjective / HPI; no problem reported Neurologic: no tingling, no paresthesia and no problem reported Psychiatric: no problem reported Endocrine: as per Subjective / HPI Hematologic / Lymphatic: as per Subjective / HPI Allergy / Immunological: no problem reported Physical Exam Physical Exam: Right shoulder held in the sling and the right upper extremity was neurovascular intact. Constitutional: well developed and well nourished; no acute distress and not intoxicated appearing ENMT: external ear and nose normal, oropharynx normal Respiratory: normal respiratory effort; no respiratory distress Cardiovascular: Extremities: normal capillary refill; no edema Skin: no rashes, warm and dry Psychiatric: A+Ox3, euthymic affect Results & Data Results & Data ([facility]) Vital Signs (Past 12 Hours) Vital Signs Temp Pulse Resp BP Pulse Ox 06/23/20 06:20 36.9 C 91 H 18 144/85 H 99 Diagnostic Findings Fine cut CT scan with 3D reconstruction with humeral head subtraction as well as MRI demonstrate large engaging Hill-Sachs measuring Hill-Sachs interval about 24 mm in the MRI. He has 15-20% glenoid bone loss anteriorly PG Care Time/CCT Total # of Minutes Spent Total Time Spent with Patient: Total time spent is greater than 50% in purchasing coordinator rdination of care (as documented) at patient's floor/unit and/or counseling patient: Coding Level of Care Code None Diagnoses Anterior shoulder dislocation S43.016A Shoulder joint instability M25.319
--- NOTE | 2020-06-23 12:00 | Operative Report ---
PG Post Operative Report Pre & Post Diagnosis Operation Date: 06/23/20 07:15 Pre-Op Diagnosis: Anterior Shoulder Dislocation Severe shoulder instability in a large engaging Hill-Sachs lesion that has led to several dislocations. Post-Op Diagnosis: Right shoulder instability, Bankart lesion involving bone, large Hill-Sachs lesion I identified the patient and participated in the time-out.: Yes Procedure Operation Date: 06/23/20 07:15 Actual Procedures p Right Shoulder Arthroscopy, Open Latarjet Coracoid Transfer, Remplissage(Right) - Eliot Carroll MD Surgeon Eliot Carroll MD Urban Designer Luis Leger PA-C Estimated Blood Loss 30 Findings See Below Examination under anesthesia demonstrated grade 3 anterior translation. Arthroscopic exam demonstrated 20% or greater anterior glenohumeral bone loss and a large engaging Hill-Sachs lesion. The Hill-Sachs interval measured 24 or more. The glenoid track measured 17. Based on preop measurement of his coracoid width and size, it was calculated to be an off track lesion even with a Latarjet. For that reason, Remplissage was performed using 2 knotless 3.9 corkscrew bio composite anchors by Arthrex. A 20 mm coracoid graft was harvested and fixed with two 4.0 cannulated titanium screws by Arthrex. Capsular repair was performed to close the T capsulotomy using #2 FiberWire. Specimens None Anesthesia Type General Regional Complications none Disposition Accompanied Patient To Recovery: No Disposition: Recovery Room Indications 24-year-old male with severe shoulder instability and advanced imaging showing a large bony Bankart lesion as well as engaging Hill-Sachs lesion. He was evaluated in clinic and surgery was recommended due to at least 6 dislocations requiring conscious sedation in the ER for reduction. We discussed the risks and benefits of shoulder surgery in detail. I recommended at least a Latarjet if not an additional Remplissage procedure based on intraoperative measurements. Discussed the risks of arthroscopic stabilization as well as open Latarjet surgery. Discussed the risks include not limited to infection, neurovascular injury, implant failure, screw migration, symptomatic hardware, need for repeat or revision procedures, arthrofibrosis, progressive degenerative changes, pain syndromes, and complications related to anesthesia and the peripheral nerve block. Description of Procedure On the day of surgery, the patient was greeted in the preoperative holding area. The informed consent was reviewed and confirmed by myself and the patient. The patient identified the surgical site and was marked by me. The patient was then turned over to anesthesia. Anesthesia performed a regional anesthetic block with excellent effect. Patient was then taken to the operating place upon the OR table and anesthesia was induced. The airway was secured. The patient was taken to the operating room and placed upon the OR table. Anesthesia was induced. The airway was secured. The patient was placed in a lateral decubitus position for right lateral shoulder arthroscopy, using a beanbag. An axillary roll was placed and all bony prominences were well-padded. The operative extremity was then prepped and draped in usual sterile fashion. We used a star sleeve with 10 pounds of inline traction through the Arthrex lateral shoulder arthroscopy positioning boom. Surgical timeout was called and verified all present. Antibiotics have been infused and the equipment is available and functional. The procedure was initiated with creation of a standard posterior viewing portal for lateral shoulder arthroscopy using a spinal needle for localization and insufflation the joint with 60 cc of normal saline. An incision was made and t he trocar was used to enter the joint. The arthroscope was introduced and a diagnostic arthroscopy was carried out. An anterior superior working portal was established using a spinal needle for localization. The Arthrex torpedo shaver was then introduced. There was obvious anterior glenoid deficiency and a large engaging Hill-Sachs that appeared to line up of the anterior rim of the remnant glenoid while on traction. The probe was then used to define bone loss which corresponded to approximate one third of an 18 mm diameter glenoid, as predicted by the CT. The glenoid rim was prepared using a motorized shaver. The inferior and posterior labrum were without significant tears. The posterior and inferior capsule was intact. Given the degree of anterior bone loss and large Hill-Sachs, it was decided Latarjet would be needed to appropriately address the instability. Glenoid track measurements were made, and the Hill-Sachs interval was confirmed arthroscopically. It seemed he would be off track even with the addition of the Latarjet based on his predicted coracoid with off his CT. For that reason, a little Remplissage procedure was conducted. The arthroscopic trocar was used to access the subacromial space. A lateral portal was established for introduction of the arthroscopic motorized shaver. A thorough bursectomy was carried out with particular attention to the Hill-Sachs area. The subacromial space was then deflated arthroscopic fluid using suction. The trocar was then used to reenter the joint through the posterior access. Arthroscopic viewing was switched to the anterior portal using switching sticks to visualize from front to back across the Hill-Sachs lesion. Posterior capsular access was then repositioned using a switching stick for the Arthrex Audrey cannula. The Audrey cannula was then introduced after dilating over the switching stick. The Hill-Sachs bony bed was then debrided of all soft tissue, using a ring curette followed by a motorized shaver. The 3.9 mm drill guide was introduced to the Audrey and 2 anchors were placed in the inferior and superior most margins of the Hill-Sachs lesion in the central portion of its [place], to avoid excessive tensioning of the joint putting the anchors more the towards the margin. The suture tails then secured. The Audrey cannula was then backed out of the intra-articular space and deployed into the subacromial space that had been prepared. A BirdBeak tissue penetrator was then used through the Audrey and then puncturing the shoulder capsule away from the central capsulotomy to spread out our sutures. All 3 sutures from the posterior anchor were pulled through. The BirdBeak was then used to do the same to the more superior suture tails. All the tails were brought back through the Audery cannula. The repair stitch and a looped stitch from 2 separate corkscrew anchors were then pulled into the Audrey to slide through the mechanism. We then alternated the same maneuver for the other repair stitch. Anterior visualization was maintained and the traction stitches were used sequentially to tighten down the capsular tissue into the prepared Hill-Sachs lesion bed.. There appeared to be adequate apposition. The joint was then drained of arthroscopic fluid and arthroscopic instruments were removed from the joint. The surgical sites were then closed using 3-0 Monocryl suture in a buried knot fashion. Sites are dressed with Ioban dressing with light gauze in preparation for repositioning. Surgical drapes were then taken down. A beachchair table set up was then positioned next to the lateral table. Patient was then transferred to the operating table readied for the beachchair position. All bony prominences were well-padded. Right upper extremity then prepped and draped in usual sterile fashion. Surgical timeout was called by the circulating nurse and verified by all present. Antibiotics have been infused and equipment is available and functional for the second phase of the operation in the beachchair position. Skin incision was planned from the coracoid towards the anterior border the axilla. A 5 cm incision was then carried out. Bovie electrocautery was used for hemostasis. Small flaps were developed medially and laterally. Dissection was directed proximally to identify subcutaneous fat indicating the cephalic vein which was identified. Cephalic vein was carried laterally as it was freed up. We then entered the deltopectoral interval, and the Korbel retractor was placed to expose the coracobrachialis. The lateral border coracobrachialis was developed from the coracoid process inferiorly. The coracoid was then dissected and skeletonized using a Bovie in preparation for harvest. Hohmann retractor was placed over the coracoid. The pectoralis minor tendon was released from the medial border of the coracoid. Digital palpation was used to confirm adequate release down to the base of the coracoid and clearance of soft tissue underneath the coracoid. The coracoacromial ligament was then incised leading a 4 to 5 mm cuff of tissue for incorporation into our capsular repair. A sagittal saw was then introduced and carried from medial to lateral at the base the coracoid until it was freed from the base. An osteotome was used to complete the osteotomy. A David was used to grasp the fragment and then pulled and flipped inferiorly. Soft tissue was dissected from the underside to allow the backside of the coracobrachialis to gently lay down to protect the musculocutaneous nerve. The sagittal saw was then used to prepare the side of the graft. A traditional Latarjet or method was chosen because the diminutive size of the coracoid, as predicted. For that reason the underside was prepared by removing soft tissue. The sagittal saw was used to reduce the pointed edges at the osteotomy and distal tip. This allowed a flat edge to develop. Graft was slightly decorticated on this underside in preparation for the bony bed. The Arthrex graft clamp was then brought to the field and position onto the graft. There was adequate bone stock for drilling. The 4 mm drill was then used to drill through and through. We had at least 20 mm of length of the graft and appeared to be of sufficient with the espinoza screws. The Cobra retractor was then released to allow us to talk the graft in the coracobrachialis sling back under subcutaneously. We then repositioned the retractors for exposure of the anterior glenohumeral joint. Metzenbaum scissors were used to create a longitudinal split in the muscular portion of the mid substance of the subscap. A Ray-Ilene was then used to dissect through this window. A knife was then used to carry out the split laterally towards the lesser tuberosity. This allowed visualization of the capsular layer. The blunt Gelpi was introduced as a self retainer. The arm was positioned in slight external rotation to allow this subscap split and then rotated back to neutral to allow access to the anterior glenoid. The humeral head should shift forward which required reduction to allow appropriate exposure of the anterior glenoid. Capsule was identified, and a vertically oriented capsulotomy was cut with protection of the underlying labral tissue. A T cut was made along the neck of the glenoid to allow exposure of the glenoid neck. Periosteal elevator was used to expose this bone. A pointed baby Hohmann was then placed underneath the glenoid to retract inferiorly, and then this was replaced by a K wire for stable retractor. The batwing retractor was used m edially on the neck to open this interval. The periosteum was debrided and the bone was shaped to a flat surface using a 4 mm round ansley. While the anterior rim was left intact the more medial neck was flattened using the ansley to allow and inset of our coracoid graft. The site was thoroughly irrigated and all bony debris was removed. The retractors were then repositioned to allow the graft to come onto the exposed glenoid neck. The coracoid fragment was sized using the Arthrex offset guides. The 0 offset guide was chosen to allow adequate visualization of the glenoid surface. The graft was loaded onto the pegs of the guide and then positioned on the anterior glenoid. K wires were driven through the guide to fix the graft provisionally. The position was checked to ensure it was slightly medialized. It appeared to be in appropriate position. We then used the cannulated drill from the Arthrex set to drill bicortically on the glenoid through the graft. Lengths were measured over the wires and confirmed with a depth gauge. We then placed cannulated screws in the superior and inferior position with alternating tension to secure the graft well into its prepared bleeding bony bed. It was well fixed. The site was then thoroughly irrigated. #2 FiberWire was then used to repair the capsulotomy and advanced to the inferior limb of the T to the superior aspect of the lateral capsular tissue. Several [id number] interrupted #2 FiberWire sutures were used to repair this capsulotomy. The blunt Gelpi retractor was then removed to approximate the subscapularis split. The tendinous portion of the split was then repaired using #2 FiberWire suture in an interrupted knot fashion. This approximated the sling well. The wound was irrigated once again. We then removed the retractors to the deltopectoral interval and allowed it to reapproximate. Skin closure commenced with 0 Vicryl suture in the deep fascial layer, followed by interrupted 2-0 Vicryl in the deep dermal layer, followed by interrupted 3-0 Monocryl sutures in the dermis, followed by running 4-0 subcuticular Monocryl backed up by Steri-Strips. Wounds are dressed with sterile Xeroform, gauze, ABDs and contained by Tegaderms. The arm was placed in a standard postoperative sling with abduction pillow. The patient tolerated procedure well, was extubated in the operating without complication, and transferred to the PACU in stable condition. Disposition: Patient will be nonweightbearing and remain in the sling until follow-up and until 6 weeks. He will follow the [facility] rehabilitation pedrito [facility]. He should stay in the sling until 6 weeks given the Remplissage procedure. He will use routine postoperative pain medications. He will remain an inpatient till pain is well controlled and he can perform activities of daily living independently. Also need to achieve reasonable glycemic control to avoid any hypoglycemic episodes that led to his severe instability. Physician electrical assistant attestation: Luis Leger PA-C was present and scrubbed for the duration of the case. He was essential to prepping/draping, patient positioning, retraction, and assistance with wound closure. PA assistance was essential due to the complex nature of this lateral arthroscopic and open beachchair procedure. Specifically, PA assistance was needed to reposition the patient. Also retraction for the open coracoid transfer surgery was essential. I attest to the content of the Intraoperative Record and any orders documented therein. Any exceptions are noted below.
--- NOTE | 2020-06-23 12:45 | Anesthesiology Progress Note ---
Date of Service June 23, 2020 Anesthesia Post Procedure Vital Signs Vital Signs: Temp Pulse Pulse Resp BP Pulse Ox 06/23/20 12:35 77 18 126/84 100 06/23/20 12:25 36.6 C 72 20 128/84 100 06/23/20 12:15 87 18 123/82 100 06/23/20 12:05 80 19 126/85 100 06/23/20 11:55 89 23 129/85 100 06/23/20 11:46 36.1 C L 98 H 18 121/76 100 06/23/20 06:20 36.9 C 91 H 18 144/85 H 99 Transfer of Care Handoff Completed per policy Notes Mental Status: alert / awake / arousable and participated in evaluation Patient Amnestic to Procedure: Yes Nausea / Vomiting: adequately controlled Pain: adequately controlled Airway Patency, RR, SpO2: stable & adequate BP & HR: stable & adequate Hydration State: stable & adequate Anesthetic Complications: no major complications apparent and Pt Satisfied with anesthetic care Notes: Block is functioning well
[2020-06-23] MEDS ORDERED: ONDANSETRON INJ 2 MG/ML 2 ML VIAL IV STA (12:49)
--- NOTE | 2020-06-23 13:01 | XRay Report ---
XR shoulder RT min 2V routine CLINICAL HISTORY: Post OP- Please Perform Glenoid View COMPARISON: Right shoulder radiographs June 18, 2020. MRI of the right shoulder June 19, 2020. FINDINGS: Alignment of the right glenohumeral joint is anatomic. Expected postoperative findings wit hin the right glenoid are noted suggestive of a coracoid transfer procedure. Alignment appears anatom ic. As expected, there is soft tissue gas. There are no unexpected radiopaque foreign bodies. IMPRESSION: Expected postoperative findings within the right shoulder. Anatomic alignment. Hardware i ntact. ACT 112: Negative or not required by law. Electronically signed by: Dada Koroma M.D. 06/23/2020 12:59 PM
[2020-06-23] MEDS ORDERED: bisacodyL 10 MG SUPP PR PRN (13:19)
[2020-06-23] MEDS ORDERED: HYDROmorphone INJ 0.5 MG/0.5 ML SYR IV PRN (13:19)
[2020-06-23] MEDS ORDERED: IBUPROFEN 600 MG TAB PO PRN (13:19)
[2020-06-23] MEDS ORDERED: NALOXONE HCL 0.4 MG/1 ML VIAL/CARP IV PRN (13:19)
[2020-06-23] MEDS ORDERED: MAGNESIUM HYDROXIDE SUSP 30 ML UDC PO PRN (13:19)
[2020-06-23] MEDS ORDERED: ACETAMINOPHEN 325 MG TAB PO PRN (13:19)
[2020-06-23] MEDS ORDERED: METOCLOPRAMIDE HCL INJ 5 MG/ML 2 ML VIAL IV PRN (13:19)
[2020-06-23] MEDS ORDERED: PHARMACY GLYCEMIC MGMT CONSULT PRN (13:25)
[2020-06-23] MEDS ORDERED: CARBOHYDRATES FOR HYPOGLYCEMIA PO PRN (13:30)
[2020-06-23] MEDS ORDERED: GLUCOSE 40% GEL 15 GM TUBE PO PRN (13:30)
[2020-06-23] MEDS ORDERED: GLUCOSE 10 TABS/TUBE PO PRN (13:30)
[2020-06-23] MEDS ORDERED: GLUCAGON FOR INJ 1 MG VIAL IM PRN (13:30)
[2020-06-23] MEDS ORDERED: DEXTROSE 50% 50 ML SYRINGE IV PRN (13:30)
[2020-06-23] MEDS: SODIUM CHLORIDE 0.9% 1000ML 1,000 ML IV SCH ×2 (13:40→22:55)
[2020-06-23] MEDS ORDERED: COUGH DROP (SUGAR FREE) LOZ 24 LOZ/1 BOX BUCCAL ONE (13:46)
[2020-06-23] MEDS: ACETAMINOPHEN 500 MG TAB PO SCH ×2 (14:01→21:04)
[2020-06-23] MEDS: oxyCODONE HCL IR 5 MG TAB (IMMEDIATE RELEASE) PO PRN ×2 (15:28→21:05)
[2020-06-23] MEDS: INSULIN ASPART 100 UNITS/ML 3 ML PEN SC SCH ×3 (16:07→21:12)
[2020-06-23] MEDS: ceFAZolin 2000MG 2,000 MG/15 ML SYR IV SCH (17:06)
[2020-06-23] MEDS: ONDANSETRON INJ 2 MG/ML 2 ML VIAL IV PRN (17:14)
[2020-06-23] MEDS ORDERED: INSULIN GLARGINE SOLOSTAR 100 UNITS/ML 3 ML PEN SQ SCH ×2 (21:00)
[2020-06-23] MEDS ORDERED: SENNA 8.6 MG TAB PO SCH (21:00)
[2020-06-23] MEDS: DOCUSATE SODIUM 100 MG CAP PO SCH (21:03)
--- NOTE | 2020-06-23 21:09 | Orthopedic Progress Note ---
Date of Service June 23, 2020 Assessment & Plan (1) Status post shoulder surgery: Making uncomplicated progress. Expect increase in pain mgt needs as block subsides. Cont glycemic management PT/OT tomorrow for independent ADLs within sling/restrictions Dispo: dc when pain is manageable w oral meds after block subsides and on stable, independent glycemic regimen (2) Shoulder joint instability: Admission and Anticipated Discharge Date Admission Date: June 23, 2020 Subjective reports tolerable pain. has not been out of bed much. pleased with nursing care. Review of Systems Review of Systems: All systems reviewed & are unremarkable except as noted in HPI & below Physical Exam Physical Exam: reports near normal finger motion. remains in sling Results & Data ([place]) Vital Signs (Past 12 Hours) Vital Signs Temp Pulse Pulse Resp BP Pulse Ox 06/23/20 20:12 37.4 C 94 H 16 119/79 100 06/23/20 18:44 37 C 83 20 127/80 100 06/23/20 14:58 84 16 130/79 100 06/23/20 14:00 36.5 C 83 16 125/75 100 06/23/20 13:25 82 16 123/77 100 06/23/20 12:35 77 18 126/84 100 06/23/20 12:25 36.6 C 72 20 128/84 100 06/23/20 12:15 87 18 123/82 100 06/23/20 12:05 80 19 126/85 100 06/23/20 11:55 89 23 129/85 100 06/23/20 11:46 36.1 C L 98 H 18 121/76 100 PG Care Time/CCT Total # of Minutes Spent Total Time Spent with Patient: Total time spent is greater than 50% in coordination of care (as documented) at patient's floor/unit and/or counseling patient: Coding Level of Care Code None Diagnoses Status post shoulder surgery Z98.890 Shoulder joint instability M25.319
[2020-06-24] MEDS: ONDANSETRON INJ 2 MG/ML 2 ML VIAL IV PRN (00:11)
[2020-06-24] MEDS: ceFAZolin 2000MG 2,000 MG/15 ML SYR IV SCH (00:11)
[2020-06-24] MEDS: INSULIN ASPART 100 UNITS/ML 3 ML PEN SC SCH ×4 (01:34→14:01)
[2020-06-24] MEDS: ACETAMINOPHEN 500 MG TAB PO SCH ×2 (05:59→13:28)
[2020-06-24 06:30] LABS: Basophils # (auto) 0.02 K/uL (0-0.2); Basophils % (auto) 0.2 %; Eosinophils # (auto) 0.11 K/uL (0-0.5); Eosinophils % (auto) 1.1 %; Hematocrit (blood only) 40.2 % (42-52); Hemoglobin 13.7 g/dL (14.0-18.0); Immature Granulocytes # (auto) 0.02 K/uL (0.00-0.02); Immature Granulocytes % (auto) 0.2 %; Lymphocytes # (auto) 2.07 K/uL (1.2-3.4); Mean Corpuscular Hemoglobin 34.3 pg (25-34); Mean Corpuscular Hgb Conc 34.1 g/dL (32-36); Mean Corpuscular Volume 100.5 fL (80-100); Mean Platelet Volume 10.9 fL (7.4-10.4); Monocytes # (auto) 1.04 K/uL (0.11-0.59); Monocytes % (auto) 10.1 %; Neutrophils # (auto) 7.07 K/uL (1.4-6.5); Neutrophils % (auto) 68.4 %; Platelet Count 230 K/uL (130-400); RDW Coefficient of Variation 12.1 % (11.5-14.5); White Blood Count 10.33 K/uL (4.8-10.8)
[2020-06-24] MEDS ORDERED: LEVOTHYROXINE SODIUM 50 MCG TABLET PO SCH (06:30)
[2020-06-24 06:55] LABS: BUN Creatinine Ratio 8.5 (10-20); Calcium 8.9 mg/dl (8.5-10.1); Creatinine Clr Calc Pharmacy 82.1 ml/min; Est GFR (Non-African American) 109.6; Potassium 3.9 mmol/L (3.5-5.1)
[2020-06-24] MEDS: DOCUSATE SODIUM 100 MG CAP PO SCH (08:42)
[2020-06-24] MEDS ORDERED: MULTIVITAMIN TAB PO SCH (09:00)
[2020-06-24] MEDS: SODIUM CHLORIDE 0.9% 1000ML 1,000 ML IV SCH (10:23)
[2020-06-24] MEDS ORDERED: INSULIN GLARGINE SOLOSTAR 100 UNITS/ML 3 ML PEN SQ ONE (12:30)
--- NOTE | 2020-06-24 13:04 | Orthopedic Progress Note ---
Date of Service June 24, 2020 Assessment & Plan (1) Status post shoulder surgery: Making stable progress on postoperative day 1. After long discussion, he states disease comfortable going home to independently manage his ADLs. He demonstrated independence with his sling. He will plan to use [employer] to transition back to his home. He plans to go to the pharmacy on the way. He states he has always needs arranged. Present on Admission?: Yes (2) Shoulder joint instability: (3) Diabetes type I: He states that he has had no issues with his diabetic management here in the hospital. He feels that he is comfortable to independently manage as he is done before and his previous regimen. He is agreeable to check his sugar aggressively. He states that he has food supply station in his home near his be d and common spaces for hypoglycemic episodes. Admission and Anticipated Discharge Date Admission Date: June 23, 2020 Subjective Despite some nausea overnight, he has made uncomplicated progress. Pain is been controlled today on oral agents. He completed physical therapy evaluation. Review of Systems Review of Systems: All systems reviewed & are unremarkable except as noted in HPI & below Physical Exam Physical Exam: Appears well, he is ambulatory in his room. Alert and oriented and cooperative on exam. Right upper extremity: Dressings clean dry intact. He has full active range of motion of his elbow, wrist, digits. Sensation to light touch is intact in all distributions. He has light touch sensation intact in the axillary nerve distribution. Sling was adjusted while he was upright. I also observed him independently don and doff the sling. Results & Data ([facility] [place]) Vital Signs (Past 12 Hours) Vital Signs Temp Pulse Resp BP Pulse Ox 06/24/20 08:46 37.0 C 66 16 117/77 98 06/24/20 04:18 37.2 C 85 16 109/65 97 H & H 06/24/20 Range/Units 05:50 Hgb 13.7 L (14.0-18.0) g/dL Hct 40.2 L (42-52) % PG Care Time/CCT Total # of Minutes Spent Total Time Spent with Patient: Total time spent is greater than 50% in coordination of care (as documented) at patient's floor/unit and/or counseling patient: Coding Level of Care Code None Diagnoses Status post shoulder surgery Z98.890 Shoulder joint instability M25.319 Diabetes type I E10.69 Diabetes mellitus complication status: with other specified complication (1) Diabetes type I Diabetes mellitus complication status: with other specified complication Qualified Code(s): E10.69 - Type 1 diabetes mellitus with other specified complication
--- NOTE | 2020-06-24 13:17 | Discharge Summary ---
Date of Service June 24, 2020 Admission HPI Per Admitting Provider 24-year-old male has had several dislocations requiring conscious sedation ER in the past month. Shoulder instability began with a fall out of bed, which requires conscious sedation for initial reduction. 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 He denies any numbness or tingling or neurologic symptoms with regard to his dislocations. Principal Diagnosis Right shoulder instability Discharge Data Allergies Allergy/AdvReac Type Severity Reaction Status Date / Time No Known Allergies Allergy Verified 06/20/20 13:11 Procedures Performed Operation Date: 06/23/20 07:15 Actual Procedures p Right Shoulder Arthroscopy, Open Latarjet Coracoid Transfer, Remplissage(Right) - Eliot Carroll MD Ordered Studies 06/23/20 05:00 US - OR guided needle placemen Routine Hospital Course (1) Status post shoulder surgery: He underwent uncomplicated shoulder stabilization surgery on 06/23/2020. He was admitted postoperatively for pain management and glucose control given his social situation with no help at home. He made uncomplicated progress. He was independently capable of managing his pain on oral regimenb and insulin regimen on postoperative day 1. (2) Shoulder joint instability: see above (3) Diabetes type I: see above Total Time Total Time Spent Total Time Spent (In Minutes): 30 Discharge Plan Discharge Items Patient Disposition: Home - Self-Care Reason For Visit: Anterior Shoulder Dislocation Discharge Diagnosis: Right shoulder severe instability Activity: Per Instructions section Non-emergency contact: Surgeon Call non-emergency contact if: you have any medication questions, your pain is not controlled and your temperature is above 101.5 Follow-up/Referrals: Eliot Carroll MD [Surgeon] - [facility] [Primary Care Provider] - Diet: Carb Count or DM1 Addtl Attending Provider Instructions: Eliot Carroll M.D. [facility] Orthopedic Surgery [address], [place] [address] SHOULDER PROCEDURES WOUND CARE: Leave your dressing in place and keep the area clean and dry. After 3 days, you may remove your dressing. You can have assistance with this in the orthopedic clinic on Friday. DO NOT REMOVE ANY SUTURES. DO NOT REMOVE THE PAPER TAPE STRIPS THAT ARE CROSSING YOUR INCISION THEY WILL FALL OFF GRADUALLY IN 2-3 WEEKS. After removing your dressing, you may begin to shower with the paper tape strips in place. Do not soak the incision. Allow gentle soap and water to run over the wound(s) and pat dry. Please cover the incision(s) with a clean, dry dressing, as needed. Do not use any ointments or topical medications unless directed by your surgeon. Do not submerse the incisions in water no pools, oceans, lakes, jacuzzis, bathtubs, etc for at least 3 weeks. ACTIVITY: Remain in the sling provided. Do not lift anything heavier than a cup of coffee with that hand. You may type or use a keyboard as tolerated. You may come out of the sling for careful hygiene and Range of Motion exercises, only. Please perform ROM (range of motion) exercises at least three times daily: 1. Wrist flexion and extension 2. Finger pump 3. Elbow flexion/extension and forearm rotation 4. Supported Codmans Exercises come out of sling, dangle your affected arm. Use your nonoperative (good) arm to support your operative (getting better!) arm at the elbow. Gently rotate/swing your operative arm in a pendulum motion for 1-2 minutes. Rest. Repeat three times. Do not reach out to your side (do not rotate your hand laterally NO EXTERNAL ROTATION) PAIN CONTROL: Use frequent ice to reduce amount of pain medications. Use for 30 minutes per hour. Do not leave in place longer than 30 minutes, especially when your block is in effect, to prevent frostbite or thermal injury. Medications: 1. Oxycodone (OxyIR) 1-2 tablet(s) orally every 4 hours for pain as needed. Use with Tylenol. Begin tapering OxyIR as soon as possible: reduce from 2 to 1 pills per dose, then spread out the doses over greater time intervals, then try to use only for therapy or for comfort while sleeping. Continue to use regular Tylenol until pain subsides. 2. Tylenol (325mg): 3 tablets every 8 hours orally. Regular dosing of Tylenol is an important part of your baseline pain control. Do not taper Tylenol until you have successfully tapered off of regular OxyIR. Do not take more than 3000mg of Tylenol per day. 3. Zofran 1 tablet orally every 6 hours as needed for nausea related to anesthesia, pain, and narcotic medications 4. Motrin (Ibuprofen = Advil): You may take 600 mg three times per day of over the counter ibuprofen or motrin or Advil to assist with pain control to limit need for oxycodone. OVER THE COUNTER: Narcotics will cause constipation. Colace and or Miralax can help while you are taking oxycodone or other narcotics. 4. Colace (100mg): take 1-2 tabs twice daily to avoid constipation from OxyIR or other narcotics. 5. Miralax 1 tablespoon in a glass of water 2 times daily until normal bowel movements FOLLOWUP: 1. Ortho Clinic with Dr. Carroll: You should be seen in 10-14 days. Please call immediately to schedule if you do not have an appointment. 2. PHYSICAL THERAPY: It is OK to be seen by your therapist before the [facility] postop appointment, if a specific consult has been placed. Pending Studies at Discharge: No Stand-Alone Forms: [facility], Smoking Cessation Medications and DC Order Prescriptions: New ondansetron HCl [Zofran] 4 mg tablet 4 mg PO DAILY PRN (Reason: nausea and vomiting) Qty: 10 RF: 0 oxycodone 5 mg tablet 5 - 10 mg PO Q4H MDD 6 tablets PRN (Reason: pain) Qty: 20 RF: 0 Continued levothyroxine [Euthyrox] 50 mcg Tablet 50 mcg PO QAM RF: 0 Lantus Solostar U-100 Insulin 100 unit/mL (3 mL) Insulin Pen 33 unit SUBCUT HS RF: 0 insulin aspart U-100 [Novolog PenFill U-100 Insulin] 100 unit/mL Cartridge See Rx Instructions .ROUTE .COMPLEX RF: 0 Discontinued acetaminophen [Tylenol] 325 mg Tablet 650 mg PO QID PRN (Reason: Pain) RF: 0 ibuprofen [Advil] 200 mg Tablet 600 mg PO Q6H PRN (Reason: Outbreak) RF: 0 Discharge Orders: Discharge Order (Routine); Ordered 06/24/20 Ordered By: Eliot Carroll Admission Data Admit Date/Time: 01/08/21 13:02 Attending Provider: Eliot Carroll Admit Provider: Eliot Carroll Primary Care Provider: [facility] Coding Level of Care Code D/C Day Management <30 mins Diagnoses Status post shoulder surgery Z98.890 Shoulder joint instability M25.319 Diabetes type I E10.69 Diabetes mellitus complication status: with other specified complication Time Spent (min) 10
== END 2020-06-24 16:58 | disposition home or self-care (01) | DRG 501 ==
LOC: ASU 06:12 → 3W 13:02

== ENCOUNTER 2021-08-27 05:57 | Inpatient (IN) ==
--- NOTE | 2021-08-24 09:22 | Anesthesiology Consultation ---
Date of Service August 24, 2021 Assessment & Plan (1) Encounter for pre-operative examination: Chart Review Chart Review: Acceptable Risk for Surgery and Patient NOT seen in Pre Admission Testing - Check BSG AM DOS Per nursing assessment 08/22/2021, patient denies any recent travel. No known Covid infection in the past 90 days. Patient is fully vaccinated for Covid. No known Covid positive exposures or Covid related symptoms. Preop Covid testing scheduled 08/23/21= negative History Surgery Operation Date: 08/27/21 07:15 Proposed Procedures p Right Shoulder Arthroscopy, Open Latarjet (Glenoid) Revision with Distal Tibia Allograft, Possible Remplissage - Eliot Carroll MD Height/Weight Height: 5 ft 4 in Weight: 48.5 kg Allergies Allergy/AdvReac Type Severity Reaction Status Date / Time No Known Drug Allergies Allergy Verified 08/27/21 06:16 Medications Home Medications Medication Instructions Recorded Confirmed Last Taken Accu-Chek Performa Test Strips #400 ea 08/21/20 08/17/21 Unknown cholecalciferol (vitamin D3) 125 125 mcg PO QAM 08/21/20 08/27/21 08/26/21 07:00 mcg (5,000 unit) capsule lancets (Accu-Chek Softclix #400 ea 08/21/20 08/17/21 Unknown Lancets) pen needle, diabetic 32 gauge x #400 ea 08/21/20 08/17/21 Unknown 5/32" (BD Shanon 2nd Gen Pen Needle) insulin aspart U-100 100 unit/mL 15 unit SUBCUT TIDM #15 ml MDD 45 08/02/21 08/27/21 08/26/21 21:00 (3 mL) subcutaneous pen (Novolog U/day Flexpen U-100 Insulin aspart) insulin glargine 100 unit/mL (3 33 unit SUBCUT HS #15 ml 08/02/21 08/27/21 08/26/21 21:00 mL) subcutaneous pen (Lantus Solostar U-100 Insulin) levothyroxine 50 mcg tablet 50 mcg PO QAM #90 tab 08/02/21 08/27/21 08/27/21 05:30 (Euthyrox) Past Medical History Medical History Diabetes type I Hypothyroidism Recurrent dislocation, right shoulder Past Family History Family History Father Diabetes Type 2 Diabetes Aunt Diabetes Grandmother Diabetes Other Cancer Heart disease No family history of adverse response to anesthesia No family history of bleeding disorder Past Surgical History Surgical History Hx of shoulder surgery Latarjet + Remplissage 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 Social History Smoking Status: Never smoker Do You Dip or Chew Tobacco: No Hx Alcohol Use: No Hx Substance Use: No substance use type: does not use Physical Exam Vital Signs Last Vital Signs Temp 98.8 F 08/27/21 06:21 Pulse 115 H 08/27/21 06:21 Resp 18 08/27/21 06:21 BP 141/85 H 08/27/21 06:21 Pulse Ox 96 08/27/21 06:21 Lab Results Anesthesia Preop Results Results Anesthesia Widget: WBC 5.66 K/uL (4.8-10.8) 08/23/21 Hgb 15.9 g/dL (14.0-18.0) 08/23/21 Hct 45.3 % (42-52) 08/23/21 Plt 196 K/uL (130-400) 08/23/21 Na 133 mmol/L (136-145) L 08/23/21 K 4.0 mmol/L (3.5-5.1) 08/23/21 Cl 96 mmol/L (98-107) L 08/23/21 CO2 31 mmol/L (21-32) 08/23/21 BUN 13 mg/dl (6-23) 08/23/21 Creat 0.85 mg/dl (0.6-1.4) 08/23/21 Glucose Level 238 mg/dl (70-99(Fasting)) H 08/23/21 POC Glucose 123 mg/dl (70-99) H 08/27/21 HA1c 7.1 % (4.5-5.6) H 08/23/21 Testing Laboratory Results 08/27/21 06:18 POC Glucose 123 H Electrocardiogram Date: 03/30/21 Poor data quality NSR at 81bpm. Normal EKG per cardio. Chest X-Ray Date: 03/30/21 Findings: + NAD
[2021-08-27] MEDS ORDERED: LR 15ML/HR IV SCH (06:00)
[2021-08-27] MEDS ORDERED: ceFAZolin 1000MG 1,000 MG/7.5 ML SYR IV SCH (06:00)
[2021-08-27] MEDS ORDERED: LR 60ML/HR IV SCH (06:00)
[2021-08-27] MEDS ORDERED: BUPIVACAINE 0.5 % 5 MG/1 ML PF 10ML VIAL ONE (06:23)
[2021-08-27] MEDS ORDERED: DEXAMETHASONE SOD INJ 4 MG/ML VIAL ONE (06:39)
[2021-08-27] MEDS ORDERED: PROPOFOL IV EMULSION 10 MG/ML 20 ML VIAL IV ONE (06:39)
[2021-08-27] MEDS ORDERED: ONDANSETRON INJ 2 MG/ML 2 ML VIAL ONE ×2 (06:39→13:42)
[2021-08-27] MEDS ORDERED: LIDOCAINE 2% 2 ML VIAL/AMP(20MG/ML) INFIL ONE (06:39)
[2021-08-27] MEDS ORDERED: MIDAZOLAM HCL 1 MG/ML 2ML VIAL ONE ×2 (06:39)
[2021-08-27] MEDS ORDERED: fentaNYL citrate 100 MCG/2 ML VIAL ONE (06:40)
[2021-08-27] MEDS ORDERED: ATROPINE SULFATE 0.1 MG/ML 10ML SYR IV PRN (06:45)
[2021-08-27] MEDS ORDERED: ONDANSETRON INJ 2 MG/ML 2 ML VIAL IV PRN (06:45)
[2021-08-27] MEDS ORDERED: ePHEDrine sulfate 50 MG/ML AMP IV PRN (06:45)
--- NOTE | 2021-08-27 07:16 | History & Physical Bridge Note ---
Date of Service August 27, 2021 History & Physical Bridge Note I have examined the patient, reviewed the History & Physical and in the interval since the performance of the History & Physical I have noted the following changes of clinical significance: no changes noted. Patient is aware of COVID-19 risks. Patient is asymptomatic for COVID-19. Patient has been tested for COVID-19 - [NEGATIVE].
[2021-08-27] MEDS ORDERED: HYDROmorphone INJ 2 MG/ML SYR/VIAL ONE (07:59)
[2021-08-27] MEDS ORDERED: ESMOLOL HCL INJ 10 MG/ML 10ML VIAL IV ONE ×2 (08:27→08:53)
[2021-08-27] MEDS ORDERED: METOPROLOL TARTRATE 1 MG/ML VIAL IV ONE (08:53)
[2021-08-27] MEDS ORDERED: ROCURONIUM BROMIDE 10 MG/ML 5 ML VIAL IV ONE (09:40)
[2021-08-27] MEDS ORDERED: NEOSTIGMINE METHYLSULFATE 1 MG/ML 10ML VIAL ONE (12:46)
[2021-08-27] MEDS ORDERED: GLYCOPYRROLATE 0.2 MG/ML VIAL ONE (12:46)
--- NOTE | 2021-08-27 13:22 | Post Operative Brief Note ---
PG Immediate Post Op with CF Date of Surgery August 27, 2021 Pre & Post Diagnosis Operation Date: 08/27/21 07:15 Pre-Op Diagnosis: Recurrent Dislocation of Right Shoulder Joint after Latarjet Post-Op Diagnosis: Recurrent Dislocation of Right Shoulder Joint after Latarjet I identified the patient and participated in the time-out.: Yes Procedure Operation Date: 08/27/21 07:15 Actual Procedures p Right Shoulder Arthroscopy, Open Latarjet (Glenoid) Revision with Distal Tibia Allograft, Remplissage(Right) - Eliot Carroll MD Surgeon Eliot Carroll MD [employer] PA-C Estimated Blood Loss 50 Findings Consistent with Post-Op Diagnosis 10mm x 15 degree graft. Drains Del Valle Catheter
[2021-08-27] MEDS ORDERED: FAMOTIDINE/PF 20 MG/2 ML VIAL IV ONE (13:29)
[2021-08-27] MEDS ORDERED: PROMETHAZINE HCL INJ 25 MG/ML 1 ML VIAL ONE ×2 (13:30→13:42)
[2021-08-27] MEDS: fentaNYL citrate 100 MCG/2 ML VIAL IV PRN ×3 (13:48→14:11)
--- NOTE | 2021-08-27 14:30 | XRay Report ---
XR shoulder RT min 2V routine HISTORY: 25 years-old Male Post shoulder surgery postoperative changes of the right shoulder COMPARISON: CT right shoulder 05/04/2021 TECHNIQUE: 2 views of the right shoulder FINDINGS: 2 cannulated screws are again noted within the inferior glenoid which appear intact. No acute fractur e, dislocation or unexpected opaque foreign body. Moderate soft tissue swelling of the right shoulder . IMPRESSION: Soft tissue swelling without acute osseous abnormality or unexpected opaque foreign body. ACT 112: Negative or not required by law. The above report was generated using voice recognition software. It may contain grammatical, syntax o r spelling errors. Electronically signed by: Livan Castano M.D. 08/27/2021 2:22 PM
--- NOTE | 2021-08-27 14:38 | Anesthesiology Progress Note ---
Date of Service August 27, 2021 Anesthesia Post Procedure Vital Signs Vital Signs: Temp Pulse Pulse Resp BP Pulse Ox 08/27/21 14:25 82 20 128/72 100 08/27/21 14:15 75 12 110/75 100 08/27/21 14:05 75 13 115/76 100 08/27/21 13:55 92 H 15 151/93 H 100 08/27/21 13:45 83 16 136/88 100 08/27/21 13:38 96.8 F L 87 12 124/80 100 08/27/21 06:21 98.8 F 115 H 18 141/85 H 96 Pain Intensity Right Shoulder: Pain Intensity: 3 Transfer of Care Handoff Completed per policy Notes Mental Status: alert / awake / arousable and participated in evaluation Patient Amnestic to Procedure: Yes Nausea / Vomiting: adequately controlled Pain: adequately controlled Airway Patency, RR, SpO2: stable & adequate BP & HR: stable & adequate Hydration State: stable & adequate Anesthetic Complications: no major complications apparent and Pt Satisfied with anesthetic care
[2021-08-27] MEDS ORDERED: oxyCODONE HCL IR 5 MG TAB (IMMEDIATE RELEASE) PO PRN (15:16)
[2021-08-27] MEDS ORDERED: bisacodyL 10 MG SUPP PR PRN (15:16)
[2021-08-27] MEDS ORDERED: NALOXONE HCL 0.4 MG/1 ML VIAL/CARP IV PRN (15:16)
[2021-08-27] MEDS ORDERED: MAGNESIUM HYDROXIDE SUSP 30 ML UDC PO PRN (15:16)
[2021-08-27] MEDS ORDERED: HYDROmorphone INJ 0.5 MG/0.5 ML SYR IV PRN (15:16)
[2021-08-27] MEDS ORDERED: METOCLOPRAMIDE HCL INJ 5 MG/ML 2 ML VIAL IV PRN (15:16)
[2021-08-27] MEDS ORDERED: PHARMACY GLYCEMIC MGMT CONSULT PRN (15:51)
[2021-08-27] MEDS: SODIUM CHLORIDE 0.9% 1000ML 1,000 ML IV SCH (15:58)
[2021-08-27] MEDS: ACETAMINOPHEN 500 MG TAB PO SCH (15:58)
[2021-08-27] MEDS: ONDANSETRON INJ 2 MG/ML 2 ML VIAL IV PRN (16:10)
--- NOTE | 2021-08-27 16:12 | Pharmacy Report ---
Pharmacy Glycemic Short Note 2 - Date of Service August 27, 2021 - Glycemic Short BSG Results (Last 24 hours): 08/27/21 08/27/21 08/27/21 06:18 10:03 11:40 POC Glucose 123 H 90 124 H 08/27/21 13:38 POC Glucose 163 H OUTPATIENT ANTIDIABETIC REGIMEN: * Lantus 33 units SC HS * Novolog (~40 units/day) * correction factor of 25 mg/dL/unit over 180 mg/dL * Carb ratio of 1 unit per 8 grams CHO consumed * HbA1c: 7.1% (08/23/21) ASSESSMENT: * AB is a 25 year old male with T1DM POD #0 s/p right shoulder arthroscopy w/ open latarjet revision/distal tiba allograft * Received 8 mg IV dexamethasone in OR * Patient follows with [facility] endocrinology * Preop BSG of 124 mg/dL - received 16 units of Lantus last evening per patient reporting * Postop BSG of 163 mg/dL * Will give Lantus with dinner in attempt to cover periop dexamethasone PLAN FOR INPATIENT GLYCEMIC CONTROL: * Basal insulin * Lantus 36 units SC X 1 (give with dinner today) * Increased dose today in light of steroids * Bolus insulin * NovoLog per scale ACHS or Q6hrs while NPO * Goal Range: Low 120 mg/dL - High 160 mg/dL * Correction Factor: 35 mg/dL/unit * Nutritional / Prandial insulin per carb ratio of 1 unit per 8 grams CHO consumed * Overnight check with same parameters
--- NOTE | 2021-08-27 16:22 | Hospitalist Consultation ---
Date of Consultation August 27, 2021 Assessment & Plan (1) Diabetes type I: -Continue Lantus 33 units in the evenings with sliding scale coverage with meals. -Pharmacy consulted for further management, appreciate their recommendations. -Accu-Cheks ACHS. (2) Hypothyroidism: - Continue levothyroxine 50 mcg. (3) Vitamin D deficiency: - Continue vitamin D3 supplementation. (4) S/P arthroscopy of right shoulder: -Pain management, bowel regimen, and IVF management per orthopedic team. Supervising Physician Co-Signing Physician Notes I personally saw and examined the patient. I verified all ibrahim points and agree with Latisha Mata PA-C with the following exceptions and/or additions: 25 year old male with T1DM here for right shoulder arthroplasty performed today by Dr Carroll O/E WD/WN, no acute distress A/P Right shoulder arthroplasty - post op pain management per orthopedics T1DM - pharmacy consulted for glycemic control. HbA1C 7.1. No need to adjust outpatient regimen on discharge. Otherwise as above History of Present Illness Reason for Consultation: Diabetes management Requesting Physician: Eliot Carroll MD Attending Physician: Eliot Carroll MD History of Present Illness Patient is 25-year-old male with past medical history of DM1, hypothyroidism, and vitamin D deficiency who presented today for right shoulder arthroscopy. Hospitalist team was consulted for management of diabetes. Per my discussion with patient, he states he takes 33 units of Lantus at midnight and takes 1 unit per 8 g of carbs with his meals. States his morning sugars range in the 70 to 80s, after meals they are in the 150s 160s. At the past week, due to anxiety about upcoming procedure, he states he has reduced his Lantus dose to 24 units. States he follows up with the diabetes clinic and his diabetes is well controlled. He is otherwise without complaints. Allergies Allergy/AdvReac Type Severity Reaction Status Date / Time No Known Drug Allergies Allergy Verified 08/27/21 06:16 Home Medications Medication Instructions Recorded Confirmed Type Accu-Chek Performa Test Strips #400 ea 08/21/20 08/17/21 Rx cholecalciferol (vitamin D3) 125 125 mcg PO QAM 08/21/20 08/27/21 History mcg (5,000 unit) capsule lancets (Accu-Chek Softclix #400 ea 08/21/20 08/17/21 Rx Lancets) pen needle, diabetic 32 gauge x #400 ea 08/21/20 08/17/21 Rx 5/32" (BD Shanon 2nd Gen Pen Needle) insulin aspart U-100 100 unit/mL 15 unit SUBCUT TIDM #15 ml MDD 45 08/02/21 08/27/21 Rx (3 mL) subcutaneous pen (Novolog U/day Flexpen U-100 Insulin aspart) insulin glargine 100 unit/mL (3 33 unit SUBCUT HS #15 ml 08/02/21 08/27/21 Rx mL) subcutaneous pen (Lantus Solostar U-100 Insulin) levothyroxine 50 mcg tablet 50 mcg PO QAM #90 tab 08/02/21 08/27/21 Rx (Euthyrox) doxycycline hyclate 100 mg capsule 100 mg PO BID 28 Days #56 cap 08/30/21 Rx ondansetron HCl 4 mg tablet 4 mg PO Q6H PRN #12 tab 08/30/21 Rx oxycodone 5 mg tablet 5 - 10 mg PO Q4H PRN #18 tab 08/30/21 Rx Dexcom G6 Sensor (blood-glucose #9 ea NS 08/31/21 Rx sensor) Dexcom G6 Transmitter #1 ea NS 08/31/21 Rx (blood-glucose transmitter) Patient History Medical History Diabetes type I Hypothyroidism Recurrent dislocation, right shoulder Surgical History (Updated 08/28/21 @ 17:31 by Eliot Carroll MD) History of shoulder surgery 08/27/21Wilsonright shoulder arthroscopy, revision Remplissage, glenoid reconstruction with distal tibial allograft. 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 Family History Father Diabetes Type 2 Diabetes Aunt Diabetes Grandmother Diabetes Other Cancer Heart disease No family history of adverse response to anesthesia No family history of bleeding disorder Social History Smoking Status: Never smoker Second Hand Exposure: No; Hx Alcohol Use: No Hx Substance Use: No Preferred Language: Turkmen Communication Ability: Effective Visual Impairment: No Limitations Residential Fee Appraiser Required: No Beliefs That Will Affect Care: None marital status: Single Current Living Situation: Family current occupational status: student Feels Safe at Home: Yes Assistive Devices: Glasses Review of Systems Review of Systems: Constitutional: No fever, sweats or chills Eyes: No diplopia, no worsening or blurred vision ENT: normal hearing, no trouble swallowing Respiratory: No cough, sputum, dyspnea at rest or on exertion Cardiovascular: No chest pain, tightness or palpitations Abdomen: No pain, nausea, vomiting, diarrhea or constipation Musculoskeletal: No joint pain, calf pain, swelling Neurologic: No weakness, numbness/tingling, or balance problems Psychiatric: No anxiety or depression Skin: No rash or itch Physical Exam Physical Exam: General: awake, alert, no apparent distress Head: Normocephalic, atraumatic ENT: PERRL, EOMI, no pharyngeal exudate, mucous membranes moist Chest: Clear to auscultation, on room air, no adventitious breath sounds Cardiac: Regular rate and rhythm, no murmur, no JVD, normal peripheral pulses, good capillary refill Abdominal: NABS x 4 quadrants, soft, nontender to palpation, no rebound, guarding or tenderness Extremities: Right arm in sling status post arthroscopy; otherwise normal inspection, no peripheral edema or erythema, calfs nontender to palpation Psych: Normal mood and affect Neuro: AAO x 3, strength intact bilaterally and rated 5/5, no motor deficits, speech is clear, no peripheral sensory deficits Skin: no rash or erythema Results & Data Results & Data ([facility]) Vital Signs (Past 12 Hours) Vital Signs Temp Pulse Pulse Resp BP BP Pulse Ox 08/27/21 15:10 85 16 118/75 100 08/27/21 14:45 36.6 C 88 14 118/77 100 08/27/21 14:25 82 20 128/72 100 08/27/21 14:15 75 12 110/75 100 08/27/21 14:05 75 13 115/76 100 08/27/21 13:55 92 H 15 151/93 H 100 08/27/21 13:45 83 16 136/88 100 08/27/21 13:38 36.0 C L 87 12 124/80 100 08/27/21 06:21 37.1 C 115 H 18 141/85 H 96 Laboratory Results Abnormal lab results 08/27/21 08/27/21 08/27/21 Range/Units 06:18 11:40 13:38 POC Glucose 123 H 124 H 163 H (70-99) mg/dl Diagnostic Findings Shoulder X-Ray 08/27/21 13:16 XR shoulder RT min 2V routine HISTORY: 25 years-old Male Post shoulder surgery postoperative changes of the right shoulder COMPARISON: CT right shoulder 05/04/2021 TECHNIQUE: 2 views of the right shoulder FINDINGS: 2 cannulated screws are again noted within the inferior glenoid which appear intact. No acute fracture, dislocation or unexpected opaque foreign body. Moderate soft tissue swelling of the right shoulder. IMPRESSION: Soft tissue swelling without acute osseous abnormality or unexpected opaque foreign body. ACT 112: Negative or not required by law. The above report was generated using voice recognition software. It may contain grammatical, syntax or spelling errors. Electronically signed by: Livan Castano M.D. 08/27/2021 2:22 PM PG Care Time/CCT Total # of Minutes Spent Total Time Spent with Patient: Total time spent is greater than 50% in coordination of care (as documented) at patient's floor/unit and/or counseling patient: Coding Level of Care Code 30616 Inpt Consult Level 2 Diagnoses S/P arthroscopy of right shoulder Z98.890 Hypothyroidism E03.9 Vitamin D deficiency E55.9 Diabetes type I E10.9 Diabetes mellitus complication status: without complication (1) Diabetes type I Diabetes mellitus complication status: without complication Qualified Code(s): E10.9 - Type 1 diabetes mellitus without complications
[2021-08-27] MEDS ORDERED: CARBOHYDRATES FOR HYPOGLYCEMIA PO PRN (16:31)
[2021-08-27] MEDS ORDERED: GLUCOSE 10 TABS/TUBE PO PRN (16:31)
[2021-08-27] MEDS ORDERED: GLUCAGON FOR INJ 1 MG VIAL SQ PRN (16:31)
[2021-08-27] MEDS ORDERED: GLUCOSE 40% GEL 15 GM TUBE PO PRN (16:31)
[2021-08-27] MEDS ORDERED: DEXTROSE 50% 50 ML SYRINGE IV PRN (16:31)
[2021-08-27] MEDS ORDERED: INSULIN GLARGINE SOLOSTAR 100 UNITS/ML 3 ML PEN SQ ONE (17:15)
[2021-08-27] MEDS: INSULIN ASPART PER UNIT SC SCH ×2 (17:54→21:02)
--- NOTE | 2021-08-27 18:12 | Operative Report ---
PG Post Operative Report Pre & Post Diagnosis Operation Date: 08/27/21 07:15 Pre-Op Diagnosis: Recurrent Dislocation of Right Shoulder Joint after Latarjet Post-Op Diagnosis: Recurrent Dislocation of Right Shoulder Joint after Latarjet I identified the patient and participated in the time-out.: Yes Procedure Operation Date: 08/27/21 07:15 Actual Procedures p Right Shoulder Arthroscopy, Open Latarjet (Glenoid) Revision with Distal Tibia Allograft, Remplissage(Right) - Eliot Carroll MD Surgeon Eliot Carroll MD Mailroom Personnel Fernandez Fields PA-C Estimated Blood Loss 50 Findings Consistent with Post-Op Diagnosis EUA demonstrated external rotation limited to 35-40 degrees. Full forward flexion and external rotation the backside of his head. Abduction limited to about 110 degrees. Arthroscopy revealed that the Latarjet bone block had resorbed and was slightly medial, likely resulting in failure. The Remplissage repair appeared to be intact in its original position. There was still Hill-Sachs interval uncovered, so I opted to place additional suture to close down the interval. 2 Arthrex bio composite knotless corkscrew anchors were used for the Remplissage. The bone loss was greater than 7 to 8 mm on arthroscopic measurement. It sized well with the template for a 10 mm x 15 degree graft. This was harvested from the fresh distal tibia allograft and fixed with 2 Arthrex 4.0 cannulated screws which included washer and FiberWire suture for capsular plication. 60 cc of blood was harvested for ACP which yielded approximately 9 mL to prepare the graft. 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 He was originally stabilized with a concomitant Remplissage as well as a Latarjet coracoid transfer. Unfortunately he awoke at nearly 1 year since his index surgery with a recurrent dislocation. This was treated with a closed reduction. Advanced imaging with CT and MR demonstrated that the coracoid bone block was too small and medial to reconstitute the anterior glenoid rim. The Remplissage was questionably disrupted. We had long discussion on further management. He desired repair and stabilization here in the attestation before returning back to [facility]. My recommendation was revision glenoid reconstruction with a distal tibia allograft with possible Remplissage. We discussed alternatives which included osteochondral allograft of the large Hill- Sachs lesion with and without yarsanism of the glenoid bone. After discussion of risk-benefit alternatives he was agreeable to proceed with the distal tibia allograft construction of the glenoid with Remplissage as needed. He waited patiently remained mostly in the sling for a fresh distal tibia allograft. This was obtained and cleared screening and we expeditiously scheduled him. The informed consent discussion as documented in his preop note in clinic. He was companied by his father today in the preop holding area, where they both were agreeable to proceed with his revision surgery. Description of Procedure On the day of surgery, the patient was greeted in the preoperative holding area. The informed consent was reviewed and confirmed by myself and the patient. The patient identified the surgical site and was marked by me. The patient was then turned over to anesthesia. Anesthesia performed a regional anesthetic block with excellent effect. Patient was then taken to the operating place upon the OR table and anesthesia was induced. The airway was secured. A Del Valle was placed for the case. He was then positioned for surgery in the lateral decubitus position for right shoulder arthroscopy. A beanbag and padding of all bony promises was used. An axillary roll was placed. The right upper extremity was then prepped and draped in usual sterile fashion for right shoulder lateral decubitus arthroscopy. 10 pounds of balance suspension was used to a star sleeve and using the Arthrex lateral positioning boom. Surgical timeout was called by the circulating nurse and verified by all present. The laterality was confirmed, antibiotics have been infused, and equipment is available and functional for the arthroscopic portion. We began with a standard lateral shoulder arthroscopy with entry through the posterior portal. The joint line was difficult to determine but was found using a spinal needle and insufflation of the joint. Arthroscope was entered. We established an anterior working portal with a spinal needle. We then began the diagnostic arthroscopy that was significant for the findings listed above. There was a Hill-Sachs interval that was still visible as was expected from her previous Remplissage in the attapulgus. There was still about 6 5 to 6 mm of lateral Hill-Sachs interval that was not covered. Evaluation of the glenoid showed rather healthy cartilage. There were no defects. He had about 6-7 mm of glenoid bone loss. The humeral head cartilage was intact. The rotator cuff insertion was intact, including the Hill-Sachs repair. There were no loose bodies. An elevator was used on the anterior glenoid labral junction. Soft tissue was adherent over the coracoid fragment. Is able to mobilize this to the coracoid margin. There was about a 4 mm step-off from the glenoid surface down to the coracoid fragment, most likely causing his recurrent instability. The glenoid rim anterior was repaired using motorized shaver. The posterior inferior labrum without significant pathology. The bicep tendon was healthy appearing. The arthroscope was removed and the entry trocar was replaced. I used the 10 to the subacromial space. A lateral working portal was then established after visualization was found. We then mobilized and performed a bursectomy to evaluate the rotator cuff on the bursal side including the Hill-Sachs repair. RF wand and motorized shaver was used to clear out the bursa. Were able to get a good look at the bursal side of the entirety of the rotator cuff. There was an obvious area of indentation from the Remplissage. The sutures are well incorporated into the tissue and there were no rotator cuff tears. I directed attention back to the Hill-Sachs region. There was still mobile tissue and rather well-healed repair. Given there was some mobility of his posterior capsule I opted to perform additional Remplissage stitches using a knotless all inside technique. The viewing was switched to the anterior portal and I placed a Audrey in the posterior portal. This was used to place 2 separate 3.0 bio composite knotless corkscrew anchors. The Audrey was then repositioned in the subacromial space to allow passage of the capsule. A BirdBeak was then used to shuttle the suture outside the capsulotomy to capture tissue. The knotless mechanism then used to cinch the capsular tissue down into the Remplissage lesion. Unfortunately one of the knotless anchors failed, so we obtained additional suture plication with 1 repair stitch. This did tucked down more tissue and filled in the Remplissage well. The joint was drained of arthroscopic fluid and all cannulas were removed. We then closed the portals with interrupted 3-0 Monocryl buried stitches. The sites were provisionally dressed with gauze and Ioban. We then took down the drapes from the lateral shoulder arthroscopy. The arm was taken out of the balance suspension. Patient was then rolled supine and the beanbag was removed. He was placed in a modified beachchair with the head of bed elevated about 40 degrees. A rolled towel was placed in the medial border of his scapula. His body was secured with padded belts. His head was secured with adequate padding and taped to the head of the bed. He was slid over to the edge of the bed for access to the anterior posterior aspect of his shoulder. A new 1015 drape was then placed down over the shoulder to isolate the field. Previous Ioban dressing was removed. The right upper extremity was then prepped and draped in usual sterile fashion for open shoulder surgery in the modified beachchair position. The arm was placed in a padded Dubose for support. The the roof truss detailer performed an additional timeout for the open beachchair portion. All were in agreement to proceed. The graft was available and certified. We started with a linear incision along his previous anterior axillary scar for the deltopectoral approach. Subcutaneous dissection was carried out using a Bovie electrocautery for hemostasis. We approached the deltopectoral interval and the vein was identified. It was intact there was previous surgery. Tended to mobilize medially. Some perforators laterally were electrocauterized. The deltopectoral interval was exploited and developed bluntly. Hohmann retractor was placed subacromial space. Scar tissue was encountered in the interval. The conjoined tendon was nonanatomic because of the previous Latarjet. We dissected carefully through the scar plane until the subscapularis was easily identified. Self-retaining retractor was used to the deltopectoral interval. We then explored carefully looking for the entry of the coracoid fragment to the subscap to identify her interval. This was identified and developed bluntly. Subscap fibers were protected using a blunt Gelpi. The capsule was intact and identified. I exploited the interval just adjacent to the lateral side of the diving conjoined tendon. This capsulotomy was made vertically and then extended towards the insertion of the subscapularis tendon which was protected. Deep Gelpi was used in this interval to expose the glenohumeral joint. We then were able to place the self retainer blunt retractors in this interval to expose the good portion of the anterior glenohumeral joint and humeral head. The capsular tissue was firmly healed against the coracoid fragment. This was dissected using the longitudinal plane. The capsule was then elevated using a periosteal elevator off the glenoid superiorly and inferiorly. Capsule labral tissue was then defined and preserved for later repair. We carefully elevated tissue off the glenoid just lateral to the coracoid fragment and superior. Its location was rather inferior which allowed some space just superior to the fragment. A sharp Hohmann retractor was then placed along the inferior glenoid levering the soft tissue sleeve down and fully exposing the coracoid screws. The screws were then backed out using the Arthrex screwdriver. The coracoid fragment was well-healed onto the anterior glenoid. The conjoined tendon was intact. We were fully exposed out onto the humeral head. Performed a thorough irrigation and debridement around the coracoid fragment including screw holes. I then obtained a sizing block from the level distal tibia allograft prep station. The previous coracoid did not allow the block sit flush. Then used a ball shaped rasp on a battery car pick up driver on high-speed to begin to fashion the anterior glenoid to accept the block template. This involved taking the portion of the superior coracoid fragment off with the bur and flattening the anterior glenoid for good reduction. The joint was thoroughly irrigated of all bone debris. Once a flat surface on the anterior glenoid neck was obtained, we are able to except a bone block. We trialed all the blocks varying angle degrees and width. The best fit that reconstituted the anterior glenoid rim was the 10 mm wide by 15 degree inclination template. The sat flush of the articular surface. We selected this template. The joint was then thoroughly irrigated and covered with laps. The allograft was obtained from the packaging and there was soaking on the back basin. We retrieved the graft and put it on the graft station from Arthrex. It was fixed using the 2 pins. We obtained our height using the cutting block. We then used the appropriate cutting jigs for the 10 mm x 15 degree graft. The first 2 cuts were made. We then made the 3 and 4 cut at the superior and inferior margins of the graft. We then used the pin jig at the [address] the 2 K wires. The K wires were drilled over with a cannulated drill bit. We then obtained our depth using the template block, compensating for the 1 mm resection of the sawblade. We then locked in our depth and finished our graft harvest with the last cut. The harvested block was then placed in a clean basin and 3000 mL of normal saline pulse lavage irrigation was used to decompress the bone graft of the marrow elements. Anesthesia had harvested to 60 cc aliquot of blood which was loaded into the Arthrex ACP syringe. This was placed in the 5-minute centrifuge at 15,000 RPMs to harvest approximately 9 mL of autologous condition plasma. This was poured over the graft block and a small specimen cup to submerse it. My PA performed this and then swirled the cup to fully saturate the graft for several minutes. The prepared graft that was soaked for approximately 5 minutes was then loaded on the pegged 0 offset graft espinoza. This was loaded onto the handle which was used to place the graft in its recipient site. Using a [place] and manual palpation, the graft was placed right at the margin of the sycuan glenoid. K wires were then placed through the jig down into the glenoid. There was not a firm palpable posterior cortex with the K wires. The cannulated drill bit was then used to drill the glenoid through the block over both wires. The drill bit and wire were removed and a depth gauge was used to get a screw length. The superior screw measured 34 mm to include a washer. The inferior screw was 36 mm to include a washer. The superior and then inferior screws were placed. There was good purchase. I backed them out once to allow 2-0 FiberWire stitch to capture under each the washer with wrapping. The screws were then advanced. There was excellent purchase and compression of the graft with a fully threaded 4.0 cannulated titanium screws from Arthrex. They were alternatively tightened for security. Our reduction was checked visually, palpably, and with the arthroscope to ensure appropriate position and alignment with the sycuan cartilage. There is near anatomic alignment. The 2-0 FiberWire sutures were then passed in a mattress format through the inferior capsular rim to plicate the labrum. Additional 2-0 FiberWire stitches were used to close the longitudinal split all the way to the humeral head. The joint had been thoroughly washed before capsular closure. The subscap was reapproximated using the 2-0 FiberWire suture. Retractors were removed to allow skin soft tissue closure. The deltopectoral was reapproximated with several interrupted 0 Vicryl stitches. 2-0 Vicryl stitch was used in the deep dermal layer, followed by interrupted 3- 0 Monocryl sutures in a buried knot. Finally, a running 4-0 Monocryl suture was used for subcuticular closure. Thorough irrigation was used between each layer. The incisions were backed up by Steri-Strips. All wounds are dressed with sterile Xeroform, plain gauze, ABD and contained by Ioban dressing. The patient tolerated procedure well. He was extubated in the operating without complication. The Del Valle was removed prior to extubation. He was then tr ansported the PACU in stable condition. Disposition: The patient remain inpatient due to his diabetic management and pain control, given that he lives alone. Remain in house until he is stable on oral medications and with his glucose management. He should be nonweightbearing and remain in the sling with the exception of elbow range of motion. He can begin gentle Codman's. We will begin physical therapy after his 2-week follow- up. We use routine postoperative pain medications as an outpatient. Physician assistant chief of police attestation: Fernandez Fields PA-C was present and scrubbed for the duration of the case. He was essential to prepping/draping, patient positioning, retraction, and assistance with wound closure. Skilled PA assistance was essential for the double surgery set up, graft preparation, and skilled retraction. I attest to the content of the Intraoperative Record and any orders documented therein. Any exceptions are noted below.
[2021-08-27] MEDS: ceFAZolin 2000MG 2,000 MG/15 ML SYR IV SCH (19:28)
[2021-08-27] MEDS: SENNA 8.6 MG TAB PO SCH (19:29)
[2021-08-27] MEDS: DOXYCYCLINE HYCLATE 100 MG CAP PO SCH (19:29)
[2021-08-27] MEDS ORDERED: INSULIN GLARGINE SOLOSTAR 100 UNITS/ML 3 ML PEN SQ SCH (21:00)
[2021-08-27] MEDS: DOCUSATE SODIUM 100 MG CAP PO SCH (21:15)
[2021-08-28] MEDS ORDERED: INSULIN ASPART PER UNIT SC SCH
[2021-08-28] MEDS: INSULIN ASPART PER UNIT SC SCH ×6 (00:48→20:43)
[2021-08-28] MEDS: ACETAMINOPHEN 500 MG TAB PO SCH ×5 (00:55→22:59)
[2021-08-28] MEDS: SODIUM CHLORIDE 0.9% 1000ML 1,000 ML IV SCH (00:56)
[2021-08-28] MEDS: ceFAZolin 2000MG 2,000 MG/15 ML SYR IV SCH (03:22)
[2021-08-28] MEDS: LEVOTHYROXINE SODIUM 50 MCG TABLET PO SCH (05:43)
[2021-08-28] MEDS: DOXYCYCLINE HYCLATE 100 MG CAP PO SCH ×2 (08:40→19:39)
[2021-08-28] MEDS: MULTIVITAMIN TAB PO SCH (08:40)
[2021-08-28] MEDS: DOCUSATE SODIUM 100 MG CAP PO SCH ×2 (08:40→19:40)
[2021-08-28] MEDS: CHOLECALCIFEROL 5,000 UNITS 125 MCG TAB PO SCH (08:40)
--- NOTE | 2021-08-28 15:26 | Pharmacy Report ---
Pharmacy Glycemic Short Note 2 - Date of Service August 28, 2021 - Glycemic Short BSG Results (Last 24 hours): 08/27/21 08/27/21 08/28/21 17:04 20:36 00:39 POC Glucose 277 H 218 H 145 H 08/28/21 08/28/21 08/28/21 04:06 07:58 12:04 POC Glucose 96 140 H 258 H OUTPATIENT ANTIDIABETIC REGIMEN: * Lantus 33 units SC HS (patient reporting 24 units prior to admission) * Novolog (~40 units/day) * correction factor of 25 mg/dL/unit over 180 mg/dL * Carb ratio of 1 unit per 8 grams CHO consumed * HbA1c: 7.1% (08/23/21) ASSESSMENT: 08/28 * Patient received total of 44 units of insulin yesterday, of which 36 units were basal insulin - stressed home dose to cover steroids. Patient only took 16 units of Lantus the night before * Fasting BSG 140 mg/dL - no further steroids ordered * Spoke with patient today and he reports he had been taking only 24 units of Lantus daily prior to admission for over a week or so. He reports decreased PO intake and while taking the 33 units daily he had several severe low BSG values so he empirically decreased his dose. (his fasting BSGs had been <50). He reports BSGs stable since dosage reduction * He states he is doing well today, eating well, denies any N/V today (had some N/V last evening) - plan to resume his home Lantus dose he was taking prior to admission * I recommended that he follow up with Endocrinology after discharge since he has been self adjusting dose. He states it has been awhile since he saw them 08/27 * AB is a 25 year old male with T1DM POD #0 s/p right shoulder arthroscopy w/ open latarjet revision/distal tiba allograft * Received 8 mg IV dexamethasone in OR * Patient follows with [facility] * Preop BSG of 124 mg/dL - received 16 units of Lantus last evening per patient reporting * Postop BSG of 163 mg/dL * Will give Lantus with dinner in attempt to cover periop dexamethasone PLAN FOR INPATIENT GLYCEMIC CONTROL: * Basal insulin * Lantus 24 units HS (this was dose he was taking prior to hospitalization, 33 units of basal had produced several severe low BSGs) * Bolus insulin * NovoLog per scale ACHS or Q6hrs while NPO * Goal Range: Low 120 mg/dL - High 160 mg/dL * Correction Factor: 35 mg/dL/unit * Nutritional / Prandial insulin per carb ratio of 1 unit per 8 grams CHO consumed * Overnight check with same parameters
--- NOTE | 2021-08-28 17:35 | Orthopedic Progress Note ---
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 -Nonweightbearing right upper extremity. May come out of the sling for daily range of motion to include elbow flexion extension pronation supination, wrist range of motion, and supported Codman's to the right glenohumeral joint. -Routine pain management for now. Work toward stable oral regimen. 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 Work towards stable oral pain regimen andindependence with glycemic control. Expect 1-2 more days. Subjective Reports tolerable pain at the shoulder. His blocks has lingering effects, particularly sensory block about the shoulder. Can move his hand okay but the hand sensation is dull. There is no issues with diet. He is having some issues with emptying his bladder. He feels that he has to go but cannot urinate. He has been straight cathed once this morning and again there was a need this afternoon. No prior history of urinary conditions. Review of Systems All systems reviewed & are unremarkable except as noted in HPI & below. Physical Exam Right shoulder: Dressing is clean dry intact. The sling is well fit. He has full motor to all distributions in the hand. Sensation is intact to light touch but diminished in all distributions broadly. Results & Data Results & Data Laboratory Results . Diagnostic Findings . PG Care Time/CCT Total # of Minutes Spent Total Time Spent with Patient: Total time spent is greater than 50% in coordination of care (as documented) at patient's floor/unit and/or counseling patient: Coding Level of Care Code 73618 Post Operative Follow-Up Diagnoses History of shoulder surgery Z98.890
[2021-08-28 18:19] LABS: Appearance Urine Clear (Clear); Bilirubin Urine Negative (Negative); Blood Urine Negative (Negative); Color Urine Yellow; Glucose Urine UA 2+ (Negative); Ketones Urine 1+ (Negative); Leukocyte Esterase Urine Negative (Negative); Nitrite Urine Negative (Negative); Protein Urine Negative (Negative); Specific Gravity Urine 1.009 (1.000-1.030); Urobilinogen Urine Negative (Negative); pH Urine 7.5 (4.5-7.5)
[2021-08-28] MEDS: SENNA 8.6 MG TAB PO SCH (19:39)
[2021-08-28] MEDS ORDERED: INSULIN GLARGINE SOLOSTAR 100 UNITS/ML 3 ML PEN SQ SCH ×2 (21:00)
[2021-08-29] MEDS ORDERED: INSULIN ASPART PER UNIT SC SCH
[2021-08-29] MEDS: LEVOTHYROXINE SODIUM 50 MCG TABLET PO SCH (05:49)
[2021-08-29] MEDS: ONDANSETRON INJ 2 MG/ML 2 ML VIAL IV PRN (06:39)
[2021-08-29] MEDS: DOXYCYCLINE HYCLATE 100 MG CAP PO SCH (08:16)
[2021-08-29] MEDS: MULTIVITAMIN TAB PO SCH (08:16)
[2021-08-29] MEDS: DOCUSATE SODIUM 100 MG CAP PO SCH ×2 (08:16→20:49)
[2021-08-29] MEDS: CHOLECALCIFEROL 5,000 UNITS 125 MCG TAB PO SCH (08:16)
[2021-08-29] MEDS: ACETAMINOPHEN 500 MG TAB PO SCH ×3 (08:16→23:31)
[2021-08-29] MEDS: INSULIN ASPART PER UNIT SC SCH ×4 (08:43→20:57)
--- NOTE | 2021-08-29 10:47 | Pharmacy Report ---
Pharmacy Glycemic Short Note 2 - Date of Service August 29, 2021 - Glycemic Short BSG Results (Last 24 hours): 08/28/21 08/28/21 08/28/21 12:04 16:59 20:22 POC Glucose 258 H 175 H 261 H 08/29/21 08/29/21 00:03 08:13 POC Glucose 149 H 75 OUTPATIENT ANTIDIABETIC REGIMEN: * Lantus 33 units SC HS (patient reporting 24 units prior to admission) * Novolog (~40 units/day) * correction factor of 25 mg/dL/unit over 180 mg/dL * Carb ratio of 1 unit per 8 grams CHO consumed * HbA1c: 7.1% (08/23/21) ASSESSMENT: 08/29 * Patient received total of 41 units of insulin yesterday, of which 24 units were basal insulin * Fasting BSG 75 mg/dL - will continue same basal for now * Anticipate continued improvement with blood sugars since steroids wearing off 08/28 * Patient received total of 44 units of insulin yesterday, of which 36 units were basal insulin - stressed home dose to cover steroids. Patient only took 16 units of Lantus the night before * Fasting BSG 140 mg/dL - no further steroids ordered * Spoke with patient today and he reports he had been taking only 24 units of Lantus daily prior to admission for over a week or so. He reports decreased PO intake and while taking the 33 units daily he had several severe low BSG values so he empirically decreased his dose. (his fasting BSGs had been <50). He reports BSGs stable since dosage reduction * He states he is doing well today, eating well, denies any N/V today (had some N/V last evening) - plan to resume his home Lantus dose he was taking prior to admission * I recommended that he follow up with Endocrinology after discharge since he has been self adjusting dose. He states it has been awhile since he saw them 08/27 * AB is a 25 year old male with T1DM POD #0 s/p right shoulder arthroscopy w/ open latarjet revision/distal tiba allograft * Received 8 mg IV dexamethasone in OR * Patient follows with [facility]ocr[facility] * Preop BSG of 124 mg/dL - received 16 units of Lantus last evening per patient reporting * Postop BSG of 163 mg/dL * Will give Lantus with dinner in attempt to cover periop dexamethasone PLAN FOR INPATIENT GLYCEMIC CONTROL: * Basal insulin * Lantus 24 units HS (this was dose he was taking prior to hospitalization, 33 units of basal had produced several severe low BSGs) * Bolus insulin * NovoLog per scale ACHS or Q6hrs while NPO * Goal Range: Low 120 mg/dL - High 160 mg/dL * Correction Factor: 35 mg/dL/unit * Nutritional / Prandial insulin per carb ratio of 1 unit per 8 grams CHO consumed * Overnight check with same parameters
--- NOTE | 2021-08-29 14:17 | Orthopedic Progress Note ---
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 Encouraged pt to continue getting OOB. -Nonweightbearing right upper extremity. May come out of the sling for daily range of motion to include elbow flexion extension pronation supination, wrist range of motion, and supported Codman's to the right glenohumeral joint. -Routine pain management for now. Pain controlled with tylenol, additional oxycodone prn. 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 -Will plan on removing catheter later today for voiding trial. Disposition: Continued stay for urinary retention. Work towards stable oral pain regimen, independence with glycemic control and voiding. Expect 1-2 more days. Subjective Doing well today. [place] Valle catheter placed last evening d/t ongoing urinary retention. Has return of full sensation in RUE. Pain managed adequately with with acetaminophen. No new symptoms Review of Systems All systems reviewed & are unremarkable except as noted in HPI & below. Physical Exam General: Pleasant 25 y/o/m in NAD. AAO x 4 Right shoulder: Dressing is clean dry intact. The sling is well fit. He has full motor to all distributions in the hand. He has full elbow ROM. Sensation is now fully intact to light touch in all distributions broadly. Results & Data Results & Data Laboratory Results Reviewed - BSG's stable . Diagnostic Findings No new imagining. PG Care Time/CCT Total # of Minutes Spent Total Time Spent with Patient: Total time spent is greater than 50% in coordination of care (as documented) at patient's floor/unit and/or counseling patient: Coding Level of Care Code 02648 Post Operative Follow-Up Diagnoses History of shoulder surgery Z98.890
[2021-08-29] MEDS: SENNA 8.6 MG TAB PO SCH (20:49)
[2021-08-29] MEDS ORDERED: INSULIN GLARGINE SOLOSTAR 100 UNITS/ML 3 ML PEN SQ SCH (21:00)
[2021-08-30] MEDS: LEVOTHYROXINE SODIUM 50 MCG TABLET PO SCH (06:07)
--- NOTE | 2021-08-30 08:14 | Orthopedic Progress Note ---
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 May come out of the sling for daily range of motion to include elbow flexion extension pronation supination, wrist range of motion, and supported Codman's to the right glenohumeral joint. -Pain managed w/ PO tylenol. Will d/c with oxycodone prn. 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 -Voiding independently after catheter removed last evening. Disposition: Stable for discharge home today. Subjective Feels good today. Voiding independently now. No concerns or symptoms. Pain controlled . Review of Systems All systems reviewed & are unremarkable except as noted in HPI & below. Physical Exam General: Pleasant 25 y/o/m in NAD. AAO x 4 Right shoulder: Dressing is clean dry intact. The sling is well fit. He has full motor to all distributions in the hand. He has full elbow ROM. Sensation fully intact . Results & Data Results & Data Laboratory Results Reviewed, BSG stable. Diagnostic Findings None new . PG Care Time/CCT Total # of Minutes Spent Total Time Spent with Patient: Total time spent is greater than 50% in coordination of care (as documented) at patient's floor/unit and/or counseling patient: Coding Level of Care Code 25403 Post Operative Follow-Up Diagnoses History of shoulder surgery Z98.890
[2021-08-30] MEDS: CHOLECALCIFEROL 5,000 UNITS 125 MCG TAB PO SCH (09:09)
[2021-08-30] MEDS: MULTIVITAMIN TAB PO SCH (09:09)
[2021-08-30] MEDS: DOCUSATE SODIUM 100 MG CAP PO SCH (09:10)
[2021-08-30] MEDS: ACETAMINOPHEN 500 MG TAB PO SCH (09:10)
[2021-08-30] MEDS: INSULIN ASPART PER UNIT SC SCH ×2 (09:15→13:08)
--- NOTE | 2021-08-31 11:56 | Discharge Summary ---
Date of Service August 31, 2021 Admission HPI (Per Admitting) CC:Right shoulder instability, chronic. HISTORY OF PRESENT ILLNESS:This is a 25-year-old male, [place] national who is here at [facility] and has had a failed Latarjet for the last several months. We have been awaiting a fresh distal tibial allograft for a glenoid reconstruction. The graft has arrived and it is a good match. He wants to proceed with surgery. He says he has been dependent on the sling and feels like it is too loose to keep out of the sling. He has had very little motion on that side. He has still been keeping up with schoolwork in the sling. 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 He denies any new injuries. He reports his health has otherwise been stable. He has continued to follow up with the [facility] and it is u nder good management now for him. REVIEW OF SYSTEMS: No report of fevers, chills, nausea, vomiting, or respiratory complaints. Has been well recently, other than what is noted in Subjective. Admission Exam (Per Admitting) PHYSICAL EXAM:Gen: NAD, appears well, vitals reviewed. HEENT: Atraumatic, no abnormalities. CV: Normal and symmetric peripheral pulses, no significant diffuse extremity edema. Chest: No wheeze, non-labored breathing pattern with symmetric chest excursion. Skin: No significant diffuse rash. Right Shoulder: The right shoulder skin has no areas of compromise. He has some slight atrophy of the shoulder girdle on the right versus left, expectedly. He can achieve forward flexion to 140 degrees with active assistance and abduction to about 80 degrees with active assistance, external rotation about 15 degrees at neutral with active assistance. Internal rotation is not tested. Manual muscle strength intact. Neurovascularly intact. Principal Diagnosis Same as "Discharge Diagnosis" noted below under Discharge Instructions. Discharge Exam General: Pleasant 25 y/o/m in NAD. AAO x 4 Right shoulder: Dressing is clean dry intact. The sling is well fit. He has full motor to all distributions in the hand. He has full elbow ROM. Sensation fully intact . Discharge Data Consultations 08/27/21 15:16 Consult Hospitalist Routine Procedures Performed Operation Date: 08/27/21 07:15 Actual Procedures p Right Shoulder Arthroscopy, Open Latarjet (Glenoid) Revision with Distal Tibia Allograft, Remplissage(Right) - Eliot Carroll MD Ordered Studies 08/27/21 05:00 US - OR guided needle placemen Routine Hospital Course (1) History of shoulder surgery: Admitted post operatively after elective shoulder surgery for blood sugar monitoring. Post operatively had new onset urinary retention requiring 24 hrs smith catheter placement. Smith removed and pt able to void independently wi thout issue. BSG and pain under good control post operatively. Discharged home without issue. PG Care Time/CCT Total # of Minutes Spent Total Time Spent with Patient: Total time spent is greater than 50% in coordination of care (as documented) at patient's floor/unit and/or counseling patient: Discharge Plan Discharge Items Patient Disposition: Home - Self-Care Reason For Visit: Dislocation of Right Shoulder Joint Discharge Diagnosis: Same as above Activity: Per Instructions section Non-emergency contact: Surgeon Call non-emergency contact if: you have any medication questions, your pain is not controlled and your temperature is above 101 Follow-up/Referrals: Eliot Carroll MD [Surgeon] - 09/14/21 3:40 pm [facility] [Primary Care Provider] - Diet: Regular and Carb Count or DM1 Addtl Attending Provider Instructions: Eliot Carroll M.D. [facility] Orthopedic Surgery [address], [place] [address] SHOULDER PROCEDURES WOUND CARE: Leave your dressing in place and keep the area clean and dry. After 3 days, you may remove your dressing. DO NOT REMOVE ANY SUTURES. DO NOT REMOVE THE PAPER TAPE STRIPS THAT ARE CROSSING YOUR INCISION THEY WILL FALL OFF GRADUALLY IN 2-3 WEEKS. After removing your dressing, you may begin to shower with the paper tape strips in place. Do not soak the incision. Allow gentle soap and water to run over the wound(s) and pat dry. Please cover the incision(s) with a clean, dry dressing, as needed. Do not use any ointments or topical medications unless directed by your surgeon. Do not submerse the incisions in water no pools, oceans, lakes, jacuzzis, bathtubs, etc for at least 3 weeks. ACTIVITY: Remain in the sling provided. Do not lift anything heavier than a cup of coffee with that hand. You may type or use a keyboard as tolerated. You may come out of the sling for careful hygiene and Range of Motion exercises, only. Please perform ROM (range of motion) exercises at least three times daily: 1. Wrist flexion and extension 2. Finger pump 3. Elbow flexion/extension and forearm rotation 4. Supported Codmans Exercises come out of sling, dangle your affected arm. Use your nonoperative (good) arm to support your operative (getting better!) arm at the elbow. Gently rotate/swing your operative arm in a pendulum motion for 1-2 minutes. Rest. Repeat three times. Do not reach out to your side (do not rotate your hand laterally NO EXTERNAL ROTATION) PAIN CONTROL: Use frequent ice to reduce amount of pain medications. Use for 30 minutes per hour. Do not leave in place longer than 30 minutes, especially when your block is in effect, to prevent frostbite or thermal injury. Medications: 1. Oxycodone (OxyIR) 1-2 tablet(s) orally every 4 hours for pain as needed. Use with Tylenol. Begin tapering OxyIR as soon as possible: reduce from 2 to 1 pills per dose, then spread out the doses over greater time intervals, then try to use only for therapy or for comfort while sleeping. Continue to use regular Tylenol until pain subsides. 2. Tylenol (325mg): 3 tablets every 8 hours orally. Regular dosing of Tylenol is an important part of your baseline pain control. Do not taper Tylenol until you have successfully tapered off of regular OxyIR. Do not take more than 3000mg of Tylenol per day. 3. Zofran 1 tablet orally every 6 hours as needed for nausea related to anesthesia, pain, and narcotic medications OVER THE COUNTER: Narcotics will cause constipation. Colace and or Miralax can help while you are taking oxycodone or other narcotics. 4. Colace (100mg): take 1-2 tabs twice daily to avoid constipation from OxyIR or other narcotics. 5. Miralax 1 tablespoon in a glass of water 2 times daily until normal bowel movements FOLLOWUP: 1. Ortho Clinic with Dr. Carroll: You should be seen in 10-14 days. Please call immediately to schedule if you do not have an appointment. 2. PHYSICAL THERAPY: It is OK to be seen by your therapist before the orthopedic postop appointment, if a specific consult has been placed. Pending Studies at Discharge: No Stand-Alone Forms: [facility], Smoking Cessation Medications and DC Order Prescriptions: New ondansetron HCl 4 mg tablet 4 mg PO Q6H PRN (Reason: nausea and vomiting) Qty: 12 RF: 0 oxycodone 5 mg tablet 5 - 10 mg PO Q4H PRN (Reason: pain, initial therapy) Qty: 18 RF: 0 doxycycline hyclate 100 mg capsule 100 mg PO BID 28 Days Qty: 56 RF: 0 Continued levothyroxine [Euthyrox] 50 mcg tablet 50 mcg PO QAM Qty: 90 RF: 0 insulin aspart U-100 [Novolog Flexpen U-100 Insulin] 100 unit/mL (3 mL) insulin pen 15 unit subcut TIDM MDD 45 U/day Qty: 15 RF: 1 Lantus Solostar U-100 Insulin 100 unit/mL (3 mL) insulin pen 33 unit SUBCUT HS Qty: 15 RF: 1 cholecalciferol (vitamin D3) 125 mcg (5,000 unit) capsule 125 mcg PO QAM RF: 0 (DME) Accu-Chek Performa Test Strips See Rx Instructions .Route .MEDSUPPLY Qty: 400 RF: 3 (DME) pen needle, diabetic [BD Shanon 2nd Gen Pen Needle] 32 gauge x 5/32" needle See Rx Instructions .ROUTE .MEDSUPPLY Qty: 400 RF: 3 (DME) lancets [Accu-Chek Softclix Lancets] Misc See Rx Instructions .ROUTE .MEDSUPPLY Qty: 400 RF: 3 Discharge Orders: Discharge Order (Routine); Ordered 08/30/21 Ordered By: Uriah Gonzalez/Other Patient Handouts: Nutrition for Wound Healing Admission Data Admit Date/Time: 08/27/21 13:16 Attending Provider: Eliot Carroll Admit Provider: Eliot Carroll Primary Care Provider: [facility] Other Providers: Jean Carlos Mcguire Other Interventions: Discharge Summary Assessment (RN) Last Done: 08/30/21 10:54
== END 2021-08-30 15:57 | disposition home or self-care (01) | DRG 508 ==
LOC: ASU 05:57 → 3N 13:16
DX: E10.9 Type 1 diabetes mellitus without complications; M25.311 Other instability, right shoulder; M85.811 Other specified disorders of bone density and structure, right shoulder; S42.201D Unspecified fracture of upper end of right humerus, subsequent encounter for fracture with routine healing; R33.9 Retention of urine, unspecified; Z79.890 Hormone replacement therapy; M24.411 Recurrent dislocation, right shoulder; Z98.890 Other specified postprocedural states; E55.9 Vitamin D deficiency, unspecified; E03.9 Hypothyroidism, unspecified